=== PATIENT | male | born 1930 | race Caucasian/White ===

== ENCOUNTER 2016-10-25 01:45 | Inpatient (IN) | payer MEDICARE, OTHER ==
[~2016-10-25] VITALS: Ht 177.8 cm; Wt 76.9 kg
[2016-10-25] VITALS (9 sets, daily range): BP systolic 108–182; BP diastolic 55–99
[~2016-10-25 01:45] MED LIST: /TAMS4CA; /WARF25TA; /WARF5TA; ACET65TA; ACTO30TA; ATOR40TA PO; COMB0.2S OU; CORE12.5; CORE6.25 PO; COUM2TAB10 PO; FENOFIBRATE; FINA5TAB2 PO; GLIP5TAB2; GLIP5TAB8 PO; HYDR-3713 PO; HYDR25TA6; LEVO50TA2; LEVO75TA4 PO; OMEGA 3; PROS5TAB; TRUS1SOL OU; TRUSOPT; VICO5TAB; VITA500055 PO; VITAMIN D50000 UNT; WARF4TAB52 PO
[2016-10-25 02:55] LABS: BASO % 0.2 % (0.0-1.0); LARGE UNSTAINED CELL # 0.1 K/mm3 (0.0-0.4); LARGE UNSTAINED CELL % 0.7 % (0.0-4.0); LYMPH # 0.3 K/mm3 (1.5-4.5); LYMPH % 2.8 % (24.0-44.0); MEAN CORPUSCULAR HEMOGLOBIN 28.3 pg (27.0-33.0); MEAN CORPUSCULAR HGB CONC 30.9 g/dl (32.0-36.5); MEAN CORPUSCULAR VOLUME 91.5 fl (80.0-96.0); MONO # 0.4 K/mm3 (0.0-0.8); NEUTROPHILS # 8.4 K/mm3 (1.8-7.7); NEUTROPHILS % 92.2 % (36.0-66.0); PLATELET COUNT, AUTOMATED 130 k/mm3 (150-450); RED CELL DISTRIBUTION WIDTH 15.7 % (11.5-14.5); WHITE BLOOD COUNT 9.2 K/mm3 (4.0-10.0)
[2016-10-25 03:05] LABS: INR 1.46
[2016-10-25 03:08] LABS: ANION GAP 14 MEQ/L (8-16); BLOOD UREA NITROGEN 62 MG/DL (7-18); CALCIUM LEVEL 9.4 MG/DL (8.8-10.2); CARBON DIOXIDE LEVEL 23 MEQ/L (21-32); CHLORIDE LEVEL 103 MEQ/L (98-107); CREATININE FOR GFR 2.28 MG/DL (0.70-1.30); GLOMERULAR FILTRATION RATE 29.3 (>35); POTASSIUM SERUM 4.8 MEQ/L (3.5-5.1); SODIUM LEVEL 140 MEQ/L (136-145)
[2016-10-25 03:15] LABS: YEAST LIKE CELL URINE AUTO LARGE
[2016-10-25 03:17] LABS: YEAST LIKE CELL URINE AUTO MODERATE
[2016-10-25 03:39] LABS: GLUCOSE, FASTING 722 MG/DL (83-110)
--- NOTE | 2016-10-25 03:50 | REPUSA ---
HISTORY: Trauma COMPARISON: None TECHNIQUE: Multiple thin-section contiguous helically-acquired axially-displayed computed tomographic images of the lumbar spine are obtained from T12 through S1, with images reviewed at soft tissue and bone window. 2D Sagittal and coronal reformatted images are performed. FINDINGS: No acute fracture, suspicious lesion, or spondylolisthesis. There is mild dextroscoliosis with multil evel severe degenerative changes with endplate sclerosis, disc space narrowing with vacuum phenomena, anterior large bridging osteophytes, multilevel posterior small spurring and disc bulges. Spinal can al appears grossly patent. Multilevel severe facet arthropathy also noted. No paraspinal masses or collections. IVC filter. Bilateral renal atrophy with right nephrostomy tube. IMPRESSION: No acute fracture. Multilevel severe degenerative changes as described. If there are persistent sympt oms, MRI lumbar spine is recommended to assess for protruding disc pathology or more sensitive evalua tion for acute fracture. Thank you for your kind referral of this patient.
[2016-10-25 04:14] LABS: VENOUS BASE EXCESS -3.7 (-2.0-2.0); VENOUS O2 SATURATION 68.4 % (60.0-80.0); VENOUS PARTIAL PRESSURE O2 37.6 mmHg (30.0-50.0); VENOUS STANDARD HCO3 20.8 MEQ/L; VENOUS TOTAL CO2 23.7 MEQ/L (24.0-28.0)
--- NOTE | 2016-10-25 04:20 | REPUSA ---
CLINICAL HISTORY: Abdominal pain. TECHNIQUE: Multiple axial, sagittal and coronal CT images were obtained through the abdomen and pelvi s without administration of oral or IV contrast material. COMMENTS: Comparison is made to prior exam on 03/16/2016. Bilateral basilar atelectatic pulmonary changes. The liver is of uniform attenuation without mass or defect. There is no intra or extrahepatic biliary ductal dilatation. The spleen is normal. The gallbladder is distended containing a gallstone. The pa ncreas is of normal contour and attenuation characteristics. There is no evidence of adrenal mass. No change in bilateral chronic renal atrophy. No change in the 5.2 mm obstructing calculous of the le ft and at L4. No change in the mild bilateral hydroureteronephrosis. No change of bilateral nephrosto my tubes. There is no evidence for appendicitis. There is no bowel wall thickening. No evidence for small or la rge bowel obstruction. There is no evidence of abdominal ascites or lymphadenopathy. There is no evidence of intrinsic or extrinsic bladder mass. There is no pelvic ascites or lymphadeno martha. Images of the lung bases show no evidence of pleural or parenchymal mass. There are no pleural effusi ons. The bony structures are free of lytic or blastic lesions. Multilevel degenerative changes are seen in volving the thoracolumbar spine. Scattered calcifications are seen involving the aorta and major branches compatible with atherosclero sis. IMPRESSION: No acute traumatic pathology is seen. Cholelithiasis. Bilateral hydroureteronephrosis. Bilateral nephrostomy tubes. No change in left hepatic obstructing calculus. Thank you for your kind referral of this patient.
[2016-10-25] MEDS ORDERED: HumuLIN R (REGULAR) INSULIN (NovoLIN R) **100U/ML** PER UNIT As Ordered ONE (05:04)
[2016-10-25 05:21] LABS: ALBUMIN 2.3 GM/DL (3.2-5.2); ALBUMIN/GLOBULIN RATIO 0.41 (1.00-1.93); BILIRUBIN,DIRECT 0.1 MG/DL (0.0-0.2); BILIRUBIN,TOTAL 0.5 MG/DL (0.2-1.0); TOTAL PROTEIN 7.9 GM/DL (6.4-8.2)
[2016-10-25] MEDS ORDERED: D5W 1,000 ML IV SCH (05:37)
[2016-10-25] MEDS ORDERED: INSULIN HUMAN REGULAR 100 UNITS in NS 99 ML IV SCH (05:37)
[2016-10-25] MEDS ORDERED: VITA100066 PO (05:48)
[2016-10-25] MEDS ORDERED: PREG50CA PO (05:48)
--- NOTE | 2016-10-25 06:11 | EDDOCDS ---
Nurse's Notes [facility] Name: Ignacio Borden Age: 85 yrs Sex: Male : 1930 Arrival Date: 10/25/2016 Time: 01:45 Bed Admit Hold Private MD: Umer Khan Diagnosis: Diabetes mellitus due to underlying condition with hyperosmolarity;Acute kidney failure;Urinary tract infection, site not specified-bilateral pyelonephritis;Altered mental status, unspecified Presentation: 10/25 01:51 Presenting complaint: EMS states: pt found on floor of bathroom beside commode, fell on af2 buttocks. reports recent lower back pain radiating down into buttocks area. Presenting complaint: EMS states: states he has been feeling weak in the legs and stuck in his chair since Monday, decreased appetite- only ate a cookie today. Adult Sepsis Screening: The patient does not have new or worsening altered mentation. Patient's respiratory rate is less than 22. Systolic blood pressure is greater than 100. Patient has a qSOFA score of 0- Negative Sepsis Screen. Suicide/Homicide risk assessment- the patient denies having any suicidal and/or homicidal ideations and does not present with any other emotional, behavioral or mental health complaints. Status: Patient is not a health services coordinator or dependent. Transition of care: patient was not received from another setting of care. 01:51 Acuity: SHELBIE Level 3 af2 01:51 Method Of Arrival: Ambulance af2 Triage Assessment: 02:00 General: Appears in no apparent distress, Behavior is appropriate for age. Pain: af2 Location: buttocks Pain currently is 6 out of 10 on a pain scale. Respiratory: Airway is patent Respiratory effort is even, unlabored, Breath sounds are diminished bilaterally. : Patel in place to gravity drainage. Musculoskeletal: Reports pain in back and buttocks. Historical: - Allergies: menthol; - Home Meds: 1. atorvastatin 40 mg oral tab 1 tab once daily 2. Coreg 6.25 mg Oral tab 1 tab 2 times per day 3. Proscar 5 mg Oral tab 1 tab once daily 4. Coumadin 1 mg Oral tab 1mg on Monday/ Monday, 2mg T,mon, Th, Sat, Sun 5. Glucotrol 5 mg Oral tab 1 tab once daily 6. Trusopt 2 % Opht drop twice a day 7. Vitamin D Oral 5000 unit daily 8. Levothroid 75 mcg Oral tab 1 tab once daily 9. pregabalin 50 mg Oral cap 1 cap twice a day 10. combigan 0.2-0.5% 1 drop in eye twice daily - PMHx: CAD; Hypercholesterolemia; Hypertension; Kidney stones; PE; Diabetes - NIDDM: uncontrolled; - PSHx: YODIT nephrostomy; back surgery; Cataract Surgery- Bilateral; right knee; - Social history: Smoking status: Patient states was never smoker of tobacco. No barriers to communication noted, The patient speaks fluent Korean. - Family history: Not pertinent. - : The pt / caregiver states he / she is on anticoagulants: coumadin. Home medication list is obtained from the patient. - Exposure Risk Screening:: None identified. Screenin:03 Screening information is obtained from the patient. Fall risk: At risk due to age, The af2 following interventions are performed due to a positive Fall Risk Screen: Fall Risk is added to Special Handling on the patient Summary Screen. A Fall Risk Bracelet was applied to the patient. Side Rails are placed in the up position. A Call Corbett is given with instruction to call for help when getting out of bed. Assistance ADL's: Requires assistance with meal preparation, this assistance is provided by family members, bathing, assistance is provided by dressing, assistance is provided by toileting, assistance is provided by ambulation, assistance is provided by housework, assistance is provided by medication administration, assistance is provided by. Abuse/DV Screen: The patient / caregiver reports he/she is: not in a situation that causes fear, pain or injury. Nutritional screening: No deficits noted. Advance Directives: Further advance directive information is declined. home support is adequate. Assessment: 02:50 General: Appears in no apparent distress, Behavior is cooperative. Neurological: Level af2 of Consciousness is awake, alert, obeys commands. Cardiovascular: Rhythm is sinus tachycardia No ectopy. Chest pain is denied. Respiratory: Airway is patent Respiratory effort is even, unlabored, Respiratory pattern is regular, symmetrical, Breath sounds are diminished bilaterally. Derm: Skin is normal. 03:03 General: see triage note.. af2 03:40 General: Critical value of glucose of [address] Mitchell and assigned cp1 nurse.. 04:45 General: Appears in no apparent distress, Behavior is cooperative. General: af2 continues with pt at bedside at this time. . Neurological: Level of Consciousness is awake, alert, obeys commands. Cardiovascular: Rhythm is sinus tachycardia No ectopy. Respiratory: Airway is patent Respiratory effort is even, unlabored. Derm: Skin is normal. 05:43 General: Appears in no apparent distress, Behavior is cooperative, pt lying on af2 stretcher resting quietly with eyes closed. . Neurological: Level of Consciousness is awake, alert. Cardiovascular: Rhythm is sinus tachycardia No ectopy. Respiratory: Airway is patent Respiratory effort is even, unlabored. Derm: Skin is normal. Vital Signs: 01:53 BP 186 / 90 (auto/); af2 01:55 Pulse 118 MON; Pulse Ox 93% ; af2 01:57 BP 186 / 90; Pulse 120; Resp 18; Temp 99.7(O); Pulse Ox 93% on R/A; Weight 77.11 kg; cmb Height 5 ft. 10 in. (177.80 cm); Pain 10/10; 02:05 Pulse 120 MON; Resp 20 S; Pulse Ox 93% on R/A; af2 02:08 BP 193 / 94 (auto/); af2 02:23 BP 147 / 74 (auto/); af2 02:52 BP 161 / 95 (auto/); af2 02:53 Pulse 116 MON; Resp 20 S; Pulse Ox 92% on R/A; af2 03:08 BP 195 / 102 (auto/); af2 03:26 Pulse 112 MON; Resp 20; Pulse Ox 93% on R/A; af2 03:38 BP 200 / 100 (auto/); af2 03:38 Pulse 110 MON; Resp 20 S; af2 03:41 BP 197 / 99 (auto/); af2 03:41 Pulse 112 MON; Pulse Ox 92% ; af2 04:38 BP 134 / 94 (auto/); af2 04:38 Pulse 126 MON; af2 04:56 BP 167 / 82 (auto/); af2 04:57 Pulse 120 MON; Resp 20 S; Pulse Ox 94% on R/A; af2 05:47 BP 197 / 105 LA; Pulse 122; Resp 18 S; Temp 98.7(O); Pulse Ox 94% on R/A; af2 01:57 Body Mass Index 24.39 (77.11 kg, 177.80 cm) cmb Vitals: :57 Log In Time N/A - ambulance arrival. cmb ED Course: :46 Valeria McginnisRN is Primary Nurse. jl 01:46 Patient visited by Altagracia Varma, Board Saw Runner. jlm 01:46 Umer Khan MD is Private Physician. jlm 01:46 Patient moved to [facility] 01:54 Triage Initiated af2 01:57 Pt greeted and oriented to ED. Patient advised of names of staff involved in care, cmb location of call corbett, wait times and NPO status. Patient has correct armband on for positive identification. Placed in gown. Bed in low position. Call light in reach. Side rails up X2. surveillance system monitor on. Pulse ox on. NIBP on. 02:03 Patient visited by Valeria Mcginnis RN. af2 02:15 Uriel Mitchell DO is Attending Physician. mm11 02:15 Patient visited by Uriel Mitchell DO. mm11 02:32 Patient visited by Uriel Mitchell DO. mm11 02:32 Troponin Sent. af2 02:32 Prothrombin Time Profile\E\INR Sent. af2 02:32 Partial Thromboplastin Time Sent. af2 02:32 Cardiac Injury Profile Sent. af2 02:33 CBC with Diff Sent. af2 02:33 Basic Metabolic Profile Sent. af2 02:55 Patient visited by Gerhard Mcknight. jp4 02:55 EKG done. (by ED staff). Reviewed by Uriel Mitchell DO. jp4 03:03 URINALYSIS Sent. af2 03:03 URINALYSIS Sent. af2 03:03 URINE CULTURE Sent. af2 03:03 URINE CULTURE Sent. af2 03:42 Patient visited by Uriel Mitchell DO. mm11 04:01 CT Spine, Lumbar W/o Contrast Returned. EDMS 04:21 Patient visited by Uriel Mitchell DO. mm11 04:36 [facility] Payment Agreement was scanned into [email or web address] and attached to record. [facility] 04:36 CT ABD & PELVIS: No Contrast Returned. EDMS 04:46 Hamida Crooks [employer]. ys2 04:57 Hamida Crooks is Hospitalizing Provider. mm11 05:14 Patient moved to Admit Hold sls1 05:23 The patient / caregiver is instructed regarding the plan of care and ED course. af2 05:24 Inserted saline lock: 20 gauge in right forearm and blood collected. The patient af2 tolerated the procedure well. No procedures done that require assistance. 05:48 Patient visited by Valeria Mcginnis RN. af2 Administered Medications: 05:07 Drug: Insulin Regular Human (0.1 units/kg) 7 units [insulin regular human 100 unit/mL sls1 injection solution (0.07 mL)] {Co-Signature: cp1 (Veda Longoria CLINICAL MATERIAL HANDLER).} Route: IVP; Site: right antecubital; 05:07 Drug: NS 0.9% 1000 ml [sodium chloride 0.9 % intravenous solution] Route: IV; Rate: sls1 bolus; Site: right antecubital; Order Results: Lab Order: Basic Metabolic Profile; SPEC'M 10/25/16 02:01 Test: GLUCOSE, FASTING; Value: 722; Range: 83-110; Abnormal: Above upper panic limits; Units: MG/DL; Status: F Test: BLOOD UREA NITROGEN; Value: 62; Range: 7-18; Abnormal: Above high normal; Units: MG/DL; Status: F Test: CREATININE FOR GFR; Value: 2.28; Range: 0.70-1.30; Abnormal: Above high normal; Units: MG/DL; Status: F Test: GLOMERULAR FILTRATION RATE; Value: 29.3; Range: >35; Abnormal: Below low normal; Status: F Test: SODIUM LEVEL; Value: 140; Range: 136-145; Units: MEQ/L; Status: F Test: POTASSIUM SERUM; Value: 4.8; Range: 3.5-5.1; Units: MEQ/L; Status: F Test: CHLORIDE LEVEL; Value: 103; Range: 98-107; Units: MEQ/L; Status: F Test: CARBON DIOXIDE LEVEL; Value: 23; Range: 21-32; Units: MEQ/L; Status: F Test: ANION GAP; Value: 14; Range: 8-16; Units: MEQ/L; Status: F Test: CALCIUM LEVEL; Value: 9.4; Range: 8.8-10.2; Units: MG/DL; Status: F Test Note: ; Units are mL/min/1.73 m2 Chronic Kidney Disease Staging per NKF: Stage I & II GFR >=60 Normal to Mildly Decreased Stage III GFR 30-59 Moderately Decreased Stage IV GFR 15-29 Severely Decreased Stage V GFR <15 Very Little GFR Left ESRD GFR <15 on POLYSOMNOGRAPHY TECHNOLOGIST Lab Order: CBC with Diff; LEV 10/25/16 02:01 Test: WHITE BLOOD COUNT; Value: 9.2; Range: 4.0-10.0; Units: K/mm3; Status: F Test: RED BLOOD COUNT; Value: 4.71; Range: 4.30-6.10; Units: M/mm3; Status: F Test: HEMOGLOBIN; Value: 13.3; Range: 14.0-18.0; Abnormal: Below low normal; Units: g/dl; Status: F Test: HEMATOCRIT; Value: 43.0; Range: 42.0-52.0; Units: %; Status: F Test: MEAN CORPUSCULAR VOLUME; Value: 91.5; Range: 80.0-96.0; Units: fl; Status: F Test: MEAN CORPUSCULAR HEMOGLOBIN; Value: 28.3; Range: 27.0-33.0; Units: pg; Status: F Test: MEAN CORPUSCULAR HGB CONC; Value: 30.9; Range: 32.0-36.5; Abnormal: Below low normal; Units: g/dl; Status: F Test: RED CELL DISTRIBUTION WIDTH; Value: 15.7; Range: 11.5-14.5; Abnormal: Above high normal; Units: %; Status: F Test: PLATELET COUNT, AUTOMATED; Value: 130; Range: 150-450; Abnormal: Below low normal; Units: k/mm3; Status: F Test: NEUTROPHILS %; Value: 92.2; Range: 36.0-66.0; Abnormal: Above high normal; Units: %; Status: F Test: LYMPH %; Value: 2.8; Range: 24.0-44.0; Abnormal: Below low normal; Units: %; Status: F Test: MONO %; Value: 4.0; Range: 0.0-5.0; Units: %; Status: F Test: EOS %; Value: 0.0; Range: 0.0-3.0; Units: %; Status: F Test: BASO %; Value: 0.2; Range: 0.0-1.0; Units: %; Status: F Test: LARGE UNSTAINED CELL %; Value: 0.7; Range: 0.0-4.0; Units: %; Status: F Test: NEUTROPHILS #; Value: 8.4; Range: 1.8-7.7; Abnormal: Above high normal; Units: K/mm3; Status: F Test: LYMPH #; Value: 0.3; Range: 1.5-4.5; Abnormal: Below low normal; Units: K/mm3; Status: F Test: MONO #; Value: 0.4; Range: 0.0-0.8; Units: K/mm3; Status: F Test: EOS #; Value: 0.0; Range: 0.0-0.50; Units: K/mm3; Status: F Test: BASO #; Value: 0.0; Range: 0.0-0.2; Units: K/mm3; Status: F Test: LARGE UNSTAINED CELL #; Value: 0.1; Range: 0.0-0.4; Units: K/mm3; Status: F Lab Order: Cardiac Injury Profile; SPEC10/25/16 02:01 Test: CPK CREATINE PHOSPHOKINASE; Value: 140; Range: 39-308; Units: U/L; Status: F Test: CK-MB VALUE MASS; Value: 1.0; Range: 0.0-3.6; Units: NG/ML; Status: F Test: MB/CK RELATIVE INDEX; Value: 0.71; Range: < OR =4; Status: F Test Note: ; DIAGNOSIS CRITERIA MMB ng/ml Relative Index (RI) NON-AMI < or = 5 N/A ALDANA ZONE > 5 < or = 4 AMI > 5 > 4 Lab Order: Partial Thromboplastin Time; SPEC10/25/16 02:01 Test: PARTIAL THROMBOPLASTIN TIME; Value: 31.2; Range: 26.6-37.1; Units: SECONDS; Status: F Lab Order: Prothrombin Time Profile\E\INR; SPEC10/25/16 02:01 Test: PROTHROMBIN TIME; Value: 17.8; Range: 12.3-14.5; Abnormal: Above high normal; Units: SECONDS; Status: F Test: INR; Value: 1.46; Status: F Test Note: ; THERAPUTIC HUMAN INR VALUES INDICATIONS NORMAL RANGES PROPHYLAXIS/TREATMENT OF: VENOUS THROMBOSIS 2.0-3.0 PULMONARY EMBOLISM 2.0-3.0 PREVENTION OF SYSTEMIC EMBOLISM FROM: TISSUE HEART VALVES 2.0-3.0 ACUTE MYOCARDIAL INFARCTION 2.0-3.0 VALVULAR HEART DISEASE 2.0-3.0 ATRIAL FIBRILLATION 2.0-3.0 MECHANICAL VALVES(HIGH RISK) 2.5-3.5 RECURRENT MYOCARDIAL INFARCTION 2.5-3.5 Lab Order: Troponin; SPEC'M 10/25/16 02:01 Test: TROPONIN I; Value: < 0.02; Range: < 0.10; Units: NG/ML; Status: F Test Note: ; Troponin I Reference Interval for Certify LOCI: 99th Percentile= 0.00-0.045 ng/ml Risk Stratification: <= 0.10 ng/ml Decreased Risk for Adverse Clinical Events. 0.10-1.50 ng/ml Increased Risk for Adverse Clinical Events. Evaluation of additional criterion and/or repeat testing in 2-6 hours is suggested to rule out myocardial damage. >= 1.50 ng/ml Indicative of Myocardial Injury. Lab Order: URINALYSIS; SPEC'M 10/25/16 02:57 Test: APPEARANCE, URINE; Value: CLOUDY; Range: CLEAR; Abnormal: Above high normal; Status: F Test: COLOR, URINE; Value: YELLOW; Range: YELLOW; Status: F Test: PH,URINE; Value: 5.0; Range: 5.0-9.0; Units: UNITS; Status: F Test: SPECIFIC GRAVITY URINE AUTO; Value: 1.021; Range: 1.002-1.035; Status: F Test: PROTEIN, URINE AUTO; Value: 2+; Range: NEGATIVE; Abnormal: Above high normal; Units: mg/dL; Status: F Test: GLUCOSE, URINE (UA) AUTO; Value: 3+; Range: NEGATIVE; Abnormal: Above high normal; Units: mg/dL; Status: F Test: KETONE, URINE AUTO; Value: NEGATIVE; Range: NEGATIVE; Units: mg/dL; Status: F Test: UROBILINOGEN, URINE AUTO; Value: 0.2; Range: 0.0-2.0; Units: mg/dL; Status: F Test: BILIRUBIN, URINE AUTO; Value: NEGATIVE; Range: NEGATIVE; Status: F Test: NITRITE, URINE AUTO; Value: NEGATIVE; Range: NEGATIVE; Status: F Test: LEUKOCYTE ESTERASE, URINE AUTO; Value: 3+; Range: NEGATIVE; Abnormal: Above high normal; Status: F Test: BLOOD, URINE BLOOD; Value: 3+; Range: NEGATIVE; Abnormal: Above high normal; Status: F Test: WBC, URINE AUTO; Value: TNTC; Range: 0-3; Abnormal: Above high normal; Units: /HPF; Status: F Test: RBC, URINE AUTO; Value: TNTC; Range: 0-3; Abnormal: Above high normal; Units: /HPF; Status: F Test: BACTERIA, URINE AUTO; Value: NEGATIVE; Range: NEGATIVE; Status: F Test: YEAST LIKE CELL URINE AUTO; Value: LARGE; Range: NONE; Abnormal: Above high normal; Status: F Test: SQUAMOUS EPITHELIAL CELL UR AU; Value: 0; Range: 0-6; Units: /HPF; Status: F Test: MUCUS, URINE; Value: SMALL; Range: NEGATIVE; Status: F Test: HYALINE CAST, URINE AUTO; Value: 0; Range: 0-1; Units: /LPF; Status: F Lab Order: URINALYSIS; SPEC'M 10/25/16 02:57 Test: APPEARANCE, URINE; Value: TURBID; Range: CLEAR; Abnormal: Above high normal; Status: F Test: COLOR, URINE; Value: YELLOW; Range: YELLOW; Status: F Test: PH,URINE; Value: 5.0; Range: 5.0-9.0; Units: UNITS; Status: F Test: SPECIFIC GRAVITY URINE AUTO; Value: 1.018; Range: 1.002-1.035; Status: F Test: PROTEIN, URINE AUTO; Value: 2+; Range: NEGATIVE; Abnormal: Above high normal; Units: mg/dL; Status: F Test: GLUCOSE, URINE (UA) AUTO; Value: 3+; Range: NEGATIVE; Abnormal: Above high normal; Units: mg/dL; Status: F Test: KETONE, URINE AUTO; Value: NEGATIVE; Range: NEGATIVE; Units: mg/dL; Status: F Test: UROBILINOGEN, URINE AUTO; Value: 0.2; Range: 0.0-2.0; Units: mg/dL; Status: F Test: BILIRUBIN, URINE AUTO; Value: NEGATIVE; Range: NEGATIVE; Status: F Test: NITRITE, URINE AUTO; Value: NEGATIVE; Range: NEGATIVE; Status: F Test: LEUKOCYTE ESTERASE, URINE AUTO; Value: 3+; Range: NEGATIVE; Abnormal: Above high normal; Status: F Test: BLOOD, URINE BLOOD; Value: 3+; Range: NEGATIVE; Abnormal: Above high normal; Status: F Test: WBC, URINE AUTO; Value: TNTC; Range: 0-3; Abnormal: Above high normal; Units: /HPF; Status: F Test: RBC, URINE AUTO; Value: TNTC; Range: 0-3; Abnormal: Above high normal; Units: /HPF; Status: F Test: BACTERIA, URINE AUTO; Value: NEGATIVE; Range: NEGATIVE; Status: F Test: YEAST LIKE CELL URINE AUTO; Value: MODERATE; Range: NONE; Abnormal: Above high normal; Status: F Test: SQUAMOUS EPITHELIAL CELL UR AU; Value: 0; Range: 0-6; Units: /HPF; Status: F Test: MUCUS, URINE; Value: SMALL; Range: NEGATIVE; Status: F Test: HYALINE CAST, URINE AUTO; Value: 0; Range: 0-1; Units: /LPF; Status: F Lab Order: Venous Blood Gas (large pea green tube on ice); SPEC'M 10/25/16 03:53 Test: VENOUS PH; Value: 7.323; Range: 7.330-7.430; Abnormal: Below low normal; Units: UNITS; Status: F Test: VENOUS PARTIAL PRESSURE CO2; Value: 44.0; Range: 38.0-50.0; Units: mmHg; Status: F Test: VENOUS PARTIAL PRESSURE O2; Value: 37.6; Range: 30.0-50.0; Units: mmHg; Status: F Test: VENOUS TOTAL CO2; Value: 23.7; Range: 24.0-28.0; Abnormal: Below low normal; Units: MEQ/L; Status: F Test: VENOUS HCO3; Value: 22.3; Range: 23.0-27.0; Abnormal: Below low normal; Units: MEQ/L; Status: F Test: VENOUS BASE EXCESS; Value: -3.7; Range: -2.0-2.0; Abnormal: Below low normal; Status: F Test: VENOUS STANDARD HCO3; Value: 20.8; Units: MEQ/L; Status: F Test: VENOUS O2 SATURATION; Value: 68.4; Range: 60.0-80.0; Units: %; Status: F Lab Order: Osmolality, Serum; SPEC'M 10/25/16 02:01 Test: OSMOLALITY SERUM; Value: 347; Range: 280-301; Abnormal: Above high normal; Units: MOSM/KG; Status: F Lab Order: Liver Profile; SPEC'M 10/25/16 03:53 Test: AST/SGOT; Value: 13; Range: 15-37; Abnormal: Below low normal; Units: U/L; Status: F Test: ALT/SGPT; Value: 16; Range: 12-78; Units: U/L; Status: F Test: ALKALINE PHOSPHATASE; Value: 133; Range: 45-117; Abnormal: Above high normal; Units: U/L; Status: F Test: BILIRUBIN,TOTAL; Value: 0.5; Range: 0.2-1.0; Units: MG/DL; Status: F Test: BILIRUBIN,DIRECT; Value: 0.1; Range: 0.0-0.2; Units: MG/DL; Status: F Test: TOTAL PROTEIN; Value: 7.9; Range: 6.4-8.2; Units: GM/DL; Status: F Test: ALBUMIN; Value: 2.3; Range: 3.2-5.2; Abnormal: Below low normal; Units: GM/DL; Status: F Test: ALBUMIN/GLOBULIN RATIO; Value: 0.41; Range: 1.00-1.93; Abnormal: Below low normal; Status: F Radiology Order: CT ABD & PELVIS: No Contrast Test: CT ABD & PELVIS: No Contrast REASON FOR EXAMINATION: nephrostomy tube placement; ; CLINICAL HISTORY: Abdominal pain.; TECHNIQUE: Multiple axial, sagittal and coronal CT images were obtained through the abdomen and pelvi; s without administration of oral or IV contrast material.; COMMENTS:; Comparison is made to prior exam on 03/16/2016.; Bilateral basilar atelectatic pulmonary changes.; The liver is of uniform attenuation without mass or defect. There is no intra or extrahepatic biliary; ductal dilatation. The spleen is normal. The gallbladder is distended containing a gallstone. The pa; ncreas is of normal contour and attenuation characteristics. There is no evidence of adrenal mass.; No change in bilateral chronic renal atrophy. No change in the 5.2 mm obstructing calculous of the le; ft and at L4. No change in the mild bilateral hydroureteronephrosis. No change of bilateral nephrosto; my tubes.; There is no evidence for appendicitis. There is no bowel wall thickening. No evidence for small or la; rge bowel obstruction. There is no evidence of abdominal ascites or lymphadenopathy.; There is no evidence of intrinsic or extrinsic bladder mass. There is no pelvic ascites or lymphadeno; martha.; Images of the lung bases show no evidence of pleural or parenchymal mass. There are no pleural effusi; ons.; The bony structures are free of lytic or blastic lesions. Multilevel degenerative changes are seen in; volving the thoracolumbar spine.; Scattered calcifications are seen involving the aorta and major branches compatible with atherosclero; sis.; IMPRESSION:; No acute traumatic pathology is seen.; Cholelithiasis.; Bilateral hydroureteronephrosis.; Bilateral nephrostomy tubes.; No change in left hepatic obstructing calculus.; Thank you for your kind referral of this patient.; ; Radiology Order: CT Spine, Lumbar W/o Contrast Test: CT Spine, Lumbar W/o Contrast REASON FOR EXAMINATION: Trauma; ; HISTORY: Trauma; COMPARISON: None; TECHNIQUE: Multiple thin-section contiguous helically-acquired axially-displayed computed tomographic; images of the lumbar spine are obtained from T12 through S1, with images reviewed at soft tissue and; bone window. 2D Sagittal and coronal reformatted images are performed.; FINDINGS:; No acute fracture, suspicious lesion, or spondylolisthesis. There is mild dextroscoliosis with multil; evel severe degenerative changes with endplate sclerosis, disc space narrowing with vacuum phenomena,; anterior large bridging osteophytes, multilevel posterior small spurring and disc bulges. Spinal can; al appears grossly patent. Multilevel severe facet arthropathy also noted.; No paraspinal masses or collections. IVC filter. Bilateral renal atrophy with right nephrostomy tube.; ; IMPRESSION:; No acute fracture. Multilevel severe degenerative changes as described. If there are persistent sympt; oms, MRI lumbar spine is recommended to assess for protruding disc pathology or more sensitive evalua; tion for acute fracture.; Thank you for your kind referral of this patient.; ; Outcome: 04:58 Decision to Hospitalize by Provider. mm11 05:23 Discharge Assessment: Patient awake, alert and oriented x 3. No cognitive and/or af2 functional deficits noted. Patient verbalized understanding of disposition instructions. patient administered narcotics - no. The following High Risk Discharge criteria are identified: None. Admitted to ICU accompanied by nurse, accompanied by tech, via stretcher, on monitor, with chart. Condition: stable. CT Study completed. Property :Personal belongings accompany Pt. 06:10 Patient left the ED. af2 Signatures: Dispatcher [employer] EDUriel Goff, DO mm11 Veda Longoria LPN LPN cp1 Shameka Wilson, RN RN sls1 Coni Wills cmGerhard Bettencourt jp4 Altagracia Varma, Board Saw Runner Unit Jen Bravo Amber, RN RN af2 Hamida Crooks ys2 Veda Longoria LPN cp1 [facility]
--- NOTE | 2016-10-25 06:11 | EDDOCDS ---
Physician Documentation [facility] Name: Ignacio Borden Age: 85 yrs Sex: Male : 1930 Arrival Date: 10/25/2016 Time: 01:45 Bed Admit Hold Private MD: Umer Khan Disposition: 10/25/16 04:58 Hospitalization ordered by Hamida Crooks for Inpatient Admission. Preliminary diagnosis are Diabetes mellitus due to underlying condition with hyperosmolarity, Acute kidney failure, Urinary tract infection, site not specified - bilateral pyelonephritis, Altered mental status, unspecified. - Bed requested for ICU. - Status is Inpatient Admission. af2 - Condition is Stable. - Problem is an acute exacerbation. - Symptoms have improved. Historical: - Allergies: menthol; - Home Meds: 1. atorvastatin 40 mg oral tab 1 tab once daily 2. Coreg 6.25 mg Oral tab 1 tab 2 times per day 3. Proscar 5 mg Oral tab 1 tab once daily 4. Coumadin 1 mg Oral tab 1mg on Monday/ Monday, 2mg T,mon, , Mon, Sun 5. Glucotrol 5 mg Oral tab 1 tab once daily 6. Trusopt 2 % Opht drop twice a day 7. Vitamin D Oral 5000 unit daily 8. Levothroid 75 mcg Oral tab 1 tab once daily 9. pregabalin 50 mg Oral cap 1 cap twice a day 10. combigan 0.2-0.5% 1 drop in eye twice daily - PMHx: CAD; Hypercholesterolemia; Hypertension; Kidney stones; PE; Diabetes - NIDDM: uncontrolled; - PSHx: YODIT nephrostomy; back surgery; Cataract Surgery- Bilateral; right knee; - Social history: Smoking status: Patient states was never smoker of tobacco. No barriers to communication noted, The patient speaks fluent Slovenian. - Family history: Not pertinent. - : The pt / caregiver states he / she is on anticoagulants: coumadin. Home medication list is obtained from the patient. - Exposure Risk Screening:: None identified. Vital Signs: 10/25 01:53 BP 186 / 90 (auto/); af2 01:55 Pulse 118 MON; Pulse Ox 93% ; af2 01:57 BP 186 / 90; Pulse 120; Resp 18; Temp 99.7(O); Pulse Ox 93% on R/A; Weight 77.11 kg / cmb 170 lbs; Height 5 ft. 10 in. (177.80 cm); Pain 10/10; 02:05 Pulse 120 MON; Resp 20 S; Pulse Ox 93% on R/A; af2 02:08 BP 193 / 94 (auto/); af2 02:23 BP 147 / 74 (auto/); af2 02:52 BP 161 / 95 (auto/); af2 02:53 Pulse 116 MON; Resp 20 S; Pulse Ox 92% on R/A; af2 03:08 BP 195 / 102 (auto/); af2 03:26 Pulse 112 MON; Resp 20; Pulse Ox 93% on R/A; af2 03:38 BP 200 / 100 (auto/); af2 03:38 Pulse 110 MON; Resp 20 S; af2 03:41 BP 197 / 99 (auto/); af2 03:41 Pulse 112 MON; Pulse Ox 92% ; af2 04:38 BP 134 / 94 (auto/); af2 04:38 Pulse 126 MON; af2 04:56 BP 167 / 82 (auto/); af2 04:57 Pulse 120 MON; Resp 20 S; Pulse Ox 94% on R/A; af2 05:47 BP 197 / 105 LA; Pulse 122; Resp 18 S; Temp 98.7(O); Pulse Ox 94% on R/A; af2 01:57 Body Mass Index 24.39 (77.11 kg, 177.80 cm) cmb MDM: 02:30 Grape Pruner/Pulse Ox/q 30 min VS ordered. mm11 02:30 IV Saline Lock ordered. mm11 02:30 Rhythm Strip to chart ordered. mm11 02:30 Undress patient appropriately for examination ordered. mm11 02:30 Misc Codifier Order ordered. mm11 02:31 Basic Metabolic Profile Ordered. EDMS 02:31 CBC with Diff Ordered. EDMS 02:31 Cardiac Injury Profile Ordered. EDMS 02:31 Partial Thromboplastin Time Ordered. EDMS 02:31 Prothrombin Time Profile\E\INR Ordered. EDMS 02:31 Troponin Ordered. EDMS 02:31 portable chest Ordered. EDMS 02:31 ECG WITH READING ER PHYS+CARDIAG ordered. EDMS 02:31 CT ABD & PELVIS: No Contrast Ordered. EDMS 02:31 CT Spine, Lumbar W/o Contrast Ordered. EDMS 02:46 Misc Codifier Order complete. jlm 02:47 URINALYSIS Ordered. EDMS 02:47 URINALYSIS Ordered. EDMS 02:47 URINE CULTURE Ordered. EDMS 02:48 URINE CULTURE Ordered. EDMS 03:25 CBC with Diff Reviewed. mm11 03:25 Prothrombin Time Profile\E\INR Reviewed. mm11 03:25 URINALYSIS Reviewed. mm11 03:25 URINALYSIS Reviewed. mm11 03:25 Partial Thromboplastin Time Reviewed. mm11 03:41 Venous Blood Gas (large pea green tube on ice) Ordered. EDMS 03:41 Osmolality, Serum Ordered. EDMS 03:51 Financial registration complete. slh 04:08 Basic Metabolic Profile Reviewed. mm11 04:08 Osmolality, Serum Reviewed. mm11 04:08 Cardiac Injury Profile Reviewed. mm11 04:08 Troponin Reviewed. mm11 04:08 CT Spine, Lumbar W/o Contrast Reviewed. mm11 04:19 Venous Blood Gas (large pea green tube on ice) Reviewed. mm11 04:19 Liver Profile Ordered. EDMS 04:36 [facility] Payment Agreement was scanned into [employer] and attached to record. sl 04:38 BED REQUEST+ADM ordered. EDMS 04:38 CT ABD & PELVIS: No Contrast Reviewed. mm11 04:41 Insulin Regular Human (0.1 units/kg) 7 units IVP once ordered. mm11 04:41 NS 0.9% 1000 ml IV at bolus once ordered. mm11 04:53 Admission / Observation Status ordered. EDMS 05:01 NPO DIET ordered. EDMS 05:41 MRSA SCREEN Ordered. EDMS 05:45 RENAL PROFILE Ordered. EDMS 05:45 RENAL PROFILE Ordered. EDMS 05:45 RENAL PROFILE Ordered. EDMS 05:45 RENAL PROFILE Ordered. EDMS 05:46 RENAL PROFILE Ordered. EDMS 05:47 TROPONIN Ordered. EDMS 05:47 TROPONIN Ordered. EDMS 05:58 BLOOD CULTURES Ordered. EDMS 05:58 BLOOD CULTURES Ordered. EDMS Administered Medications: 05:07 Drug: Insulin Regular Human (0.1 units/kg) 7 units [insulin regular human 100 unit/mL sls1 injection solution (0.07 mL)] {Co-Signature: cp1 (Veda Longoria [employer]OD[employer]CHANT).} Route: IVP; Site: right antecubital; 05:07 Drug: NS 0.9% 1000 ml [sodium chloride 0.9 % intravenous solution] Route: IV; Rate: sls1 bolus; Site: right antecubital; Signatures: Dispatcher [employer] AMELIA FABIAN, FRANSISCO Fuller RN Uriel Leon, DO mm11 Altagracia Varma, Director Gift Unit Jen Bravo Amber, RN RN af2 Shameka Wilson RN sls1 Veda Longoria LPN cp1 The chart was reviewed and I authenticate all verbal orders and agree with the evaluation and treatment provided.Attachments: 04:36 [facility] Payment Agreement [facility] MTD[facility]
[2016-10-25 07:03] LABS: ALBUMIN 2.6 GM/DL (3.2-5.2); CALCIUM LEVEL 8.9 MG/DL (8.8-10.2); CREATININE FOR GFR 2.26 MG/DL (0.70-1.30); GLOMERULAR FILTRATION RATE 29.6 (>35); POTASSIUM SERUM 4.1 MEQ/L (3.5-5.1)
[2016-10-25] MEDS ORDERED: CARVedilol 6.25 MG TAB PO ONE (07:15)
[2016-10-25] MEDS: LEVOTHYROXINE 0.075 MG TAB (75 MCG) PO SCH (07:19)
[2016-10-25] MEDS: KCL 20MEQ in NS 1000ML 1,000 ML IV SCH ×2 (07:20→17:29)
--- NOTE | 2016-10-25 07:28 | HPE ---
DATE OF ADMISSION: 10/25/2016 PRIMARY CARE PROVIDER: Umer Khan MD CHIEF COMPLAINT: Weakness, high sugars. HISTORY OF PRESENT ILLNESS: Mr. Borden is a pleasant 85-year-old male with past medical history of type 2 diabetes, deep vein thrombosis (DVT) and pulmonary embolism, who [facility] with a complaint of a fall and weakness at home. States that the patient at baseline has chronic back pain and muscle spasm and when he has severe muscle spasm it leaves him able to sit in the chair for hours to days. He had a similar episode of severe back pain and muscle spasm approximately 3-4 days ago. At that time, he again sat in his chair for prolonged hours and has only tried to walk with a walker last night to go and have a bowel movement, but as he attempted to sit down he eventually slouched down on the bathroom floor because of significant weakness to his legs. There was no injury to his back, head or the rest of his body. He admits that in the last 3-4 days he has not had a good appetite and has stopped taking most of his medications, including his Glucotrol and Coumadin. Also noticed that he has had more coughing spells that are worse in the morning with yellow production. Also endorsed coughing spells at times when he eats or when swallowing pills. Associated with dizziness, unsteady on his feet but no syncopal episodes. No fevers, night sweats, shortness of breath, palpitations, slurring of speech. Incidentally complained of one episode of chest discomfort located in the sternal region yesterday, episode lasting approximately seconds to minutes, it resolved on its own, and it occurred while he was sitting in his wheelchair. Associated with one brief episode of shortness of breath, which resolved on its own. There was no radiation to the chest pain. In the emergency department, glucose found to be elevated at 722. He was started on IV fluids and insulin. 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 Hypertension. Type 2 diabetes with nephropathy. Gastroesophageal reflux disease (GERD). Polycythemia. Hyperlipidemia. Parkinson's disease. Lumbar spinal stenosis. Adenomatous polyp. Benign prostatic hypertrophy (BPH). Vitamin D deficiency. Hypothyroidism. Chronic kidney disease stage 3, chronic, creatinine is 1.9. Chronic anxiety. 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 PAST SURGICAL HISTORY: IVC filter 1991. Laminectomy. Bilateral hydronephrosis status post nephrostomy tubes. Colonoscopy. Ureteral stent placement. FAMILY HISTORY: Father from cerebrovascular accident (CVA) and diabetic complications. Mother from Alzheimer's disease. Son with hypothyroidism. SOCIAL HISTORY: Patient is an ex-smoker of many years. He used to smoke 20 years. No alcohol or drug use. No recent travel. Currently lives at home with his . He used to work for the [employer]. ALLERGIES: 1. ACTOS - edema. 2. BACTRIM - rash. 3. LOPID - gastrointestinal (GI) side effects. 4. MENTHOL - hives. 5. ULTRAM - GI effects. 6. ZETIA - GI effects. 7. ZOCOR - myalgias. 8. METFORMIN - GI effects. HOME MEDICATIONS: - [place] one tablet every 6 hours as needed, 5/325 - Lipitor 40 mg by mouth daily - Coreg 6.25 mg by mouth twice a day - vitamin D 1000 units by mouth daily - Combigan one drop both eyes (OU) twice a day - dorzolamide one drop both eyes (OU) twice a day - finasteride 5 mg by mouth daily - glipizide 5 mg by mouth daily - Synthroid 75 mcg by mouth daily - Lyrica 50 mg by mouth twice a day - Coumadin 2 mg twice a week, Monday and Monday, and 1 mg for the rest of the week. He has not been taking these medications because of his poor appetite. REVIEW OF SYSTEMS: CONSTITUTIONAL: Weight loss but unknown. thinks he has lost some weight in the last 3-4 days because of poor appetite, but unknown amount. HEENT: Positive for dizziness, lightheadedness, difficulty with swallowing. At times coughs with food. No blurry vision, double vision. CARDIOVASCULAR: Positive for chest pain as mentioned above. He has been sleeping upright, but only because of back pain, not because of shortness of breath. PULMONARY: No shortness of breath. Positive for productive cough as above. No hemoptysis. GASTROINTESTINAL: No nausea, vomiting, diarrhea, constipation, hematemesis, hematochezia or melena. GENITOURINARY: Positive for hydronephrosis status post nephrostomy tubes as above. MUSCULOSKELETAL: Positive for bilateral leg pain, chronic. NEUROLOGICAL: No paralysis, paresthesia, headaches. ENDOCRINE: Positive for thyroid and diabetes. LYMPHATICS: No lumps, bumps, or swelling anywhere in neck, axilla, or groin. HEMATOLOGY: No abnormal bleeding or bruising. PHYSICAL EXAMINATION: Blood pressure 186/90, heart rate 120, respiratory rate 18, pulse oximetry 93% on room air, temperature 99.7, BMI 24.3. GENERAL: Patient was sitting upright in bed, comfortable. No acute distress. He is alert, awake, oriented times three, pleasant and cooperative. at bedside. HEENT: Normocephalic, atraumatic. Very dry oral mucosa. Neck supple, no jugular venous distention (JVD). Extraocular movement intact. Pupils equal and reactive to light. CHEST: Symmetric chest rise, no accessory muscle use. Breath sounds with occasional crackles in the lung bases. HEART: Mildly tachycardic, S1 and S2 present. Could not appreciate any murmurs or rubs. ABDOMEN: Soft, nontender, nondistended, protuberant. No guarding, no rebound. EXTREMITY: No pedal edema. Pedal pulses present bilaterally. NEUROLOGIC: Strength 4/5 in all extremities. Sensory intact. Negative Babinski. Intact finger to nose. No focal deficits appreciated. Did not assess gait. LABORATORY DATA: WBC 9.2, hemoglobin 13.3, hematocrit 43, platelets 130, sodium 140, potassium 4.8, chloride 103, carbon dioxide 23, BUN 62, creatinine 2.28, glucose 722, osmolality 347, calcium 9.4, AST 13, ALT 16, alkaline phosphatase 133. Troponin first set is negative. Coags PT 17.8, INR 1.46. VBG pH 7.32, pCO2 44, pO2 37.6. CT of the abdomen and pelvis showed no acute traumatic pathology. Cholelithiasis. Bilateral hydroureteronephrosis with tubes. Lumbar spine showed no acute fracture. Multilevel degenerative changes. C Chest x-ray AP poor inspiratory effort. Cardiomegaly. Clear costophrenic angle on the right, difficult to appreciate angle on the left. No obvious infiltrates appreciated. EKG showed sinus tach, heart rate of 116. Left axis deviation. IMPRESSION/PLAN: Mr. Borden is a pleasant 85-year-old male who presented with weakness, found to have elevated glucose. 1. Hyperosmolar hyperglycemic state. This is likely secondary to his noncompliance with medication due to poor appetite. So far cardiac workup for possible etiology of his hyperosmolar state is negative, however will continue trend Troponins. Check a urine culture. He does have recurrent urinary tract infections in the past. The patient will be started on an insulin drip and IV fluid hydration. Nothing by mouth status due to reported episodes of coughing with food. 2. Acute kidney injury likely secondary to #1. Continue IV hydration as mentioned above. 3. History of PE/DVT, status post IVC filter. Continue Coumadin but his INR is subtherapeutic. For now will continue Coumadin 2 mg daily. Dose can be adjusted based on the daily labs. 4. Hyperlipidemia. Continue Lipitor 40 mg daily. 5. Hypertension. Continue Coreg 6.25 mg twice a day. 6. Benign prostatic hypertrophy (BPH). Continue 5 mg of finasteride. 7. Hypothyroidism. Continue home dose of levothyroxine. 8. Deep vein thrombosis (DVT) prophylaxis. Sequential compression devices (SCD), thromboembolic deterrent stockings (TEDS) and Coumadin. My preceptor for this patient encounter was Dr. Hamida Crooks. The preceptor was physically present in the building during the encounter and was fully available. As needed, all aspects of the patient interview, examination, medical decision making process, and medical care plan development were reviewed and approved by the preceptor. The preceptor is aware and concurs with the plan as stated in the body of this note and will attest to such by his/her cosignature. CARLOS
--- NOTE | 2016-10-25 07:58 | REP ---
Clinical: Chest pain and weakness . Comparison: 09/29/2014 . Findings: The mediastinum and cardiac silhouette are stable and within normal limits for portable technique. The lung gonzales are clear without acute consolidation, effusion, or pneumothorax. Skeletal structures are intact. Impression: No focal consolidation or acute cardiopulmonary process. Signed by Kit Cherry MD 10/25/2016 07:51 A
[2016-10-25 08:12] LABS: ALBUMIN 2.3 GM/DL (3.2-5.2); CREATININE FOR GFR 2.09 MG/DL (0.70-1.30); GLOMERULAR FILTRATION RATE 32.4 (>35); PHOSPHORUS LEVEL 1.5 MG/DL (2.5-4.9); POTASSIUM SERUM 4.4 MEQ/L (3.5-5.1)
[2016-10-25] MEDS: PREGABALIN 50 MG CAP (LYRICA) PO SCH ×2 (08:27→20:13)
[2016-10-25] MEDS: ATORVASTATIN 20 MG TAB PO SCH (08:28)
[2016-10-25] MEDS: FINASTERIDE 5 MG TAB PO SCH (08:28)
[2016-10-25] MEDS: VITAMIN D 1,000 INTERNATIONAL UNITS TABLET PO SCH (08:28)
[2016-10-25] MEDS: DORZOLAMIDE 2% OPHTH SOLN 10 ML BTL OU SCH ×2 (08:28→20:13)
[2016-10-25] MEDS ORDERED: CARVedilol 6.25 MG TAB PO SCH (09:00)
--- NOTE | 2016-10-25 09:21 | IPNPDOC ---
Assessment/Plan Date Seen The patient was seen on 10/25/16. 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 Normally managed by Glucotrol at home, but was not taking this fro several days at home. JFW: change insulin drip to ICU protocol, except no D5 for BS<200 (2) Acute ass-[id number] elevation myocardial infarction Status: Acute Problem Text: JFW: troponin bumper to 0.45. Already on statin and bblocker, on warfarin. Will consult ronit TURNER d/w Dr Burris (3) Acute kidney injury Status: Acute Problem Text: Continue IVF Has CKD - Baseline creatinine around 1.9 (4) History of pulmonary embolism Status: Chronic Response to Treatment: Stable Problem Text: On Chronic Coumadin Subtherapeutic on admission, but was not taking meds. Usual HD 2 mg daily restarted (5) BPH (benign prostatic hyperplasia) Status: Chronic Response to Treatment: Stable Problem Text: On Proscar (6) Hypothyroid Status: Chronic Response to Treatment: Stable Problem Specific Plan: Monitor Clinically Problem Text: Levothyroxine (7) Parkinson disease Status: Chronic Response to Treatment: Stable (8) Sacral decubitus ulcer, stage III Status: Chronic Problem Text: Get wound consult Plan / VTE VTE Prophylaxis Ordered?: Yes (Coumadin) Plan Therapy: PT, OT Disposition Get Wound Consult Subjective Review of Systems CC/HPI The patient is a 85-year-old male admitted with a reason for visit of Acute Kidney Injury, Uncontrolled Type 2 Dm. Events since last encounter No complaints Constitutional: Denies: Chills, Fever Pulmonary: Denies: Cough, Dyspnea Cardiovascular: Denies: Chest Pain, Orthopnea, Palpitations Gastrointestinal: Denies: Abdominal Pain, Constipation, Diarrhea, Nausea, Vomiting Musculoskeletal: Reports: Other Symptoms (back pain controlled currently) Objective Physical Examination General Exam: Positive: No Acute Distress, Other (drowsy but arousable. A little confused) Chest Exam: Positive: Normal air movement, Negative: Clear to auscultation Heart Exam: Positive: Rate Normal, Negative: Murmurs Abdomen Exam: Positive: Soft, Negative: Tenderness Male Exam: Negative: Edema Vital Signs/I&O Vital Signs Date Time Temp Pulse Resp B/P Pulse Ox O2 Delivery O2 Flow Rate FiO2 10/25/16 07:21 112 182/84 10/25/16 06:30 99.0 18 96 Room Air Laboratory Data Labs 24H Laboratory Tests 2 10/25/16 02:01: Activated Partial Thromboplast Time 31.2, Anion Gap 14, White Blood Count 9.2, Red Blood Count 4.71, Hemoglobin 13.3L, Hematocrit 43.0, Mean Corpuscular Volume 91.5, Mean Corpuscular Hemoglobin 28.3, Mean Corpuscular Hemoglobin Concent 30.9L, Red Cell Distribution Width 15.7H, Platelet Count 130L, Neutrophils (%) (Auto) 92.2H, Lymphocytes (%) (Auto) 2.8L, Monocytes (%) (Auto) 4.0, Eosinophils (%) (Auto) 0.0, Basophils (%) (Auto) 0.2, Neutrophils # (Auto) 8.4H, Lymphocytes # (Auto) 0.3L, Monocytes # (Auto) 0.4, Eosinophils # (Auto) 0.0, Basophils # (Auto) 0.0, Blood Urea Nitrogen 62H, Creatinine 2.28H, Sodium Level 140, Potassium Level 4.8, Chloride Level 103, Carbon Dioxide Level 23, Calcium Level 9.4, Total Creatine Kinase 140, Creatine Kinase MB 1.0, Creatine Kinase MB Relative Index 0.71, Glomerular Filtration Rate 29.3L, Large Unclassified Cells # 0.1, Large Unclassified Cells % 0.7, Osmolality 347H, Prothromb Time International Ratio 1.46, Prothrombin Time 17.8H, Troponin I < 0.02 10/25/16 02:57: Urine Amorphous Sediment , Urine Appearance TURBIDH, Urine Color YELLOW, Urine pH 5.0, Urine Specific [place] 1.018, Urine Protein 2+H, Urine Glucose (UA) 3+H , Urine Ketones NEGATIVE, Urine Urobilinogen 0.2, Urine Bilirubin NEGATIVE, Urine Leukocyte Esterase 3+H, Urine Bacteria (Auto) NEGATIVE, Urine Blood 3+H, Urine Calcium Carbonate Cryst(Auto) , Urine Calcium Oxalate Cryst (Auto) , Urine Calcium Phosphate Tessa (Auto) , Urine Cellular Casts , Urine Cystine Crystals , Urine Granular Casts (Auto) , Urine Hyaline Casts (Auto) 0, Urine Leucine Crystals , Urine Mucus (Auto) SMALL, Urine Nitrite NEGATIVE, Urine Oval Fat Bodies (Auto) , Urine RBC (Auto) TNTCH, Urine Renal Epithelial Cells , Urine Sperm (Auto) , Urine Squamous Epithelial Cells 0, Urine Transitional Epithelial Cells , Urine Trichomonas (Auto) , Urine Triple Phosphate Cryst (Auto ) , Urine Tyrosine Crystals , Urine Uric Acid Crystals (Auto) , Urine WBC (Auto ) TNTCH, Urine Waxy Casts (Auto) , Urine Yeast-Like Cells (Auto) MODERATEH 10/25/16 03:53: Aspartate Amino Transf (AST/SGOT) 13L, Alanine Aminotransferase (ALT/SGPT) 16, Alkaline Phosphatase 133H, Total Bilirubin 0.5, Direct Bilirubin 0.1, Albumin 2.3L, Albumin/Globulin Ratio 0.41L, Blood Gas Bicarbonate Standard 20.8, Total Protein 7.9, Venous Blood Base Excess -3.7L, Venous Blood pH 7.323L, Venous Blood Partial Pressure CO2 44.0, Venous Blood Partial Pressure O2 37.6, Venous Blood Total Carbon Dioxide 23.7L, Venous Blood HCO3 22.3L, Venous Blood Oxygen Saturation 68.4 10/25/16 06:17: Bedside Glucose (Misc Panel) 541*H 10/25/16 06:30: Albumin 2.6L, Blood Urea Nitrogen 61H, Creatinine 2.26H, Sodium Level 142, Potassium Level 4.1, Chloride Level 107, Carbon Dioxide Level 22, Anion Gap 13, Bedside Glucose Confirm (Misc) 513*H, Calcium Level 8.9, Glomerular Filtration Rate 29.6L, Phosphorus Level 2.0L 10/25/16 07:43: Albumin 2.3L, Blood Urea Nitrogen 63H, Creatinine 2.09H, Sodium Level 145, Potassium Level 4.4, Chloride Level 109H, Carbon Dioxide Level 23, Anion Gap 13 , Calcium Level 9.0, Glomerular Filtration Rate 32.4L, Phosphorus Level 1.5#L 10/25/16 08:21: Bedside Glucose (Misc Panel) 499H CBC/BMP Laboratory Tests 10/25/16 02:01 Calcium Level 9.4, Total Creatine Kinase 140, Red Blood Count 4.71, Mean Corpuscular Volume 91.5, Mean Corpuscular Hemoglobin 28.3, Mean Corpuscular Hemoglobin Concent 30.9 L, Red Cell Distribution Width 15.7 H, Neutrophils (%) ( Auto) 92.2 H, Lymphocytes (%) (Auto) 2.8 L, Monocytes (%) (Auto) 4.0, Eosinophils (%) (Auto) 0.0, Basophils (%) (Auto) 0.2, Neutrophils # (Auto) 8.4 H , Lymphocytes # (Auto) 0.3 L, Monocytes # (Auto) 0.4, Eosinophils # (Auto) 0.0, Basophils # (Auto) 0.0 10/25/16 06:30 Anion Gap 13 10/25/16 07:43 Anion Gap 13 FSBS Laboratory Tests Test 10/25/16 06:17 10/25/16 08:21 Range/Units Bedside Glucose (Misc Panel) 541 499 83-110 MG/DL Microbiology Microbiology 10/25/16 Blood Culture, Received Pending 10/25/16 Blood Culture, Received Pending 10/25/16 MRSA Screen, Received Pending 10/25/16 Urine Culture, Received Pending 10/25/16 Urine Culture, Received Pending MERRY KHAN PA-C Oct 25, 2016 09:21 Umer Khan MD Oct 25, 2016 14:11
[2016-10-25] MEDS: INSULIN IV RATE CHANGE DOCUMENTATION ML/HR XX SCH ×5 (10:04→20:00)
[2016-10-25 10:22] LABS: ALBUMIN 2.3 GM/DL (3.2-5.2); CREATININE FOR GFR 2.11 MG/DL (0.70-1.30); PHOSPHORUS LEVEL 1.2 MG/DL (2.5-4.9); POTASSIUM SERUM 3.9 MEQ/L (3.5-5.1)
[2016-10-25] MEDS: NORCO, ANEXSIA 5/325MG TABLET (HYDROcodone/ACETAMINOPHEN) PO PRN (11:37)
[2016-10-25 12:42] LABS: ALBUMIN 2.1 GM/DL (3.2-5.2); CALCIUM LEVEL 8.5 MG/DL (8.8-10.2); GLOMERULAR FILTRATION RATE 34.1 (>35); PHOSPHORUS LEVEL 1.3 MG/DL (2.5-4.9); POTASSIUM SERUM 4.2 MEQ/L (3.5-5.1)
[2016-10-25] MEDS: INSULIN HUMAN REGULAR 100 UNITS in NS 99 ML IV SCH (14:00)
[2016-10-25 14:27] LABS: ALBUMIN 2.1 GM/DL (3.2-5.2); CALCIUM LEVEL 8.8 MG/DL (8.8-10.2); CREATININE FOR GFR 1.92 MG/DL (0.70-1.30); GLOMERULAR FILTRATION RATE 35.7 (>35); PHOSPHORUS LEVEL 1.3 MG/DL (2.5-4.9); POTASSIUM SERUM 4.3 MEQ/L (3.5-5.1)
[2016-10-25] MEDS ORDERED: ASPIRIN 81 MG CHEW TABLET PO ONE (14:45)
[2016-10-25] MEDS ORDERED: WARFARIN SOD 2 MG TAB PO SCH (17:00)
--- NOTE | 2016-10-25 17:46 | CR.PDOC ---
[facility] Cardiology Consultation Date of Consultation 10/25/16 Cadiology Consultation REFERRING PHYSICIAN: Umer Khan M.D. REASON FOR REFERRAL: Acute coronary syndrome, elevated troponin I HISTORY OF PRESENT ILLNESS: 85-year-old man with type 2 diabetes, diabetic nephropathy, chronic kidney disease stage III, systemic hypertension, antithrombin III deficiency, prior DVT, Jignesh filter, on chronic warfarin therapy with no previously known heart disease. Patient was hospitalized earlier today with complaints of weakness and falls and was noted to be severely hyperglycemic and acute kidney injury. Since admission he was noted to have an indeterminate range troponin I which was elevated from a normal value at the time of admission. He is quite sedentary. He denies any chest, neck, jaw , or upper extremity pain, pressure, tightness, squeezing, heaviness or burning with or without exertion. Denies any exertional dyspnea. No orthopnea or PND. No leg or ankle swelling. No palpitations. No presyncope or syncope. No embolic events. No intermittent claudication. 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 Mother from Alzheimer's dementia. Son with hypothyroidism. SOCIAL HISTORY: Prior smoking history. No alcohol or illicit drugs. Lives with his . Retired from the [employer]. REVIEW OF SYSTEMS: Poor appetite 3-4 days. Dizziness/lightheadedness. Difficulty swallowing. Productive cough 3-4 days. Hydronephrosis status post nephrostomy tubes. Chronic bilateral leg pain. Hypothyroidism and type 2 diabetes. No panic attacks or depression. All other 10 point review of systems negative. GENERAL APPEARANCE: - Normal body weight. Not in any respiratory or psychologic distress. No gross head, facial, or skeletal deformities. EYES: No conjunctival pallor, scleral icterus or xanthelasma. ENT/Mouth: - Some missing teeth. NECK: Jugular Venous Pulsations: 3 cm Trachea midline. No palpable thyroid. EXTREMITIES: No clubbing, nailbed cyanosis, or splinter hemorrhages. SKIN: No skin lesions. No skin pallor or icterus. NEUROLOGIC/PSYCHOLOGIC: Oriented to person, place, and time. Mood and affect normal. Speech normal. MUSCULOSKELETAL: Curvature of the spine normal. Gross motor strength and tone normal. No muscle atrophy, fasciculations, or tremors. - Gait not appropriate to test at this time. THORAX: Breathing appears unlabored with normal expansion. No dullness to percussion. Normal breath sounds. No crackles, wheezes, or prolonged expiration. HEART: No anterior chest scars or devices. No palpable apex beat. No left parasternal lifts, heaves, or thrills. S1 normal. S2 normal. No S3 or S4. No systolic clicks, opening snap, pericardial knock, or pericardial friction rubs No murmurs. ARTERIAL PULSES: Carotids normal in volume and contour and without bruits. No palpable abdominal aorta. Femoral pulses 2+/2 Pedal pulses 2+/2 LOWER EXTREMITY EDEMA: - No edema. ABDOMEN: Abdomen soft nontender with normal bowel sounds. No abdominal bruits. No hepatomegaly, splenomegaly, or abdominal masses. - Liver span (right midclavicular line): 12 cm - Stool for occult blood not indicated. Presence of bilateral nephrostomy tubes with urine drainage bags. ALLERGIES: Please see below. HOME MEDICATIONS: Please see below. CURRENT MEDICATIONS: Please see below. Electrocardiogram: ECG ordered. No current ECG is available from this hospitalization available yet. LABORATORY DATA: Please see below. IMAGING: Single view chest x-ray 10/25/2016 reported no acute focal consolidation or acute cardiopulmonary process. Mediastinum and cardiac silhouette within normal limits for portable technique. Lung gonzales clear and without acute consolidation or effusion. ASSESSMENT/PLAN: 1. Indeterminate level troponin I is a patient with multiple ASCVD risk factors (type 2 diabetes, prior smoking history, systemic hypertension, CKD, hyperlipidemia, male gender) in the setting of severe hyperglycemia and acute kidney injury. ECG has been ordered but pending. I suspect that this patient almost certainly has atherosclerotic coronary heart disease. Differentiation between primary acute coronary syndrome versus secondary acute coronary syndrome is difficult to determine. He is chronically maintained on warfarin because of prior DVT/embolism, antithrombin III deficiency, and Jignesh filter. Patient denies any chest pain/discomfort to suggest angina however given his long-standing history of poorly controlled diabetes he could very well have absence of anginal symptoms. Patient desires only medical therapy and does not wish to undergo cardiac catheterization/percutaneous coronary intervention or coronary artery bypass graft surgery. Continue troponin I monitoring. Cardiac injury panel was ordered. Continue warfarin. Aspirin 81 mg daily was added. Use of ACEI or ARB is currently contraindicated by acute kidney injury. Continue intensive statin therapy (atorvastatin 40 mg/d). Recommend switching from vasodilating beta sita carvedilol to a non- vasodilating beta sita so as to permit diastolic BP greater than 60 mmHg. 2. Systemic Hypertension. Recent BP readings in hospital indicate controlled systolic BP and a few diastolic BPs in the 50s. I would like to see diastolic BP greater than or equal to 60 mmHg because of CAD. To accomplish this I will like to switch him from vasodilating beta sita (carvedilol) to atenolol. No use of ACEI or ARB at present due to acute kidney injury. 3. Hyperlipidemia. No prior recent lipid profile is available for review. Patient is currently on intensive statin therapy (atorvastatin 40 mg/d). Recommend DASH diet. Thank you kindly for asking me to participate in the care of your patient. Vital Signs/I&O Vital Signs Date Time Temp Pulse Resp B/P Pulse Ox O2 Delivery O2 Flow Rate FiO2 10/25/16 16:00 99.0 103 20 108/63 95 Room Air Height (in): 70 Weight (kg): 78.3 BMI (kg): 24.8 Laboratory Data Labs 24H Laboratory Tests 2 10/25/16 02:01: Activated Partial Thromboplast Time 31.2, Anion Gap 14, White Blood Count 9.2, Red Blood Count 4.71, Hemoglobin 13.3L, Hematocrit 43.0, Mean Corpuscular Volume 91.5, Mean Corpuscular Hemoglobin 28.3, Mean Corpuscular Hemoglobin Concent 30.9L, Red Cell Distribution Width 15.7H, Platelet Count 130L, Neutrophils (%) (Auto) 92.2H, Lymphocytes (%) (Auto) 2.8L, Monocytes (%) (Auto) 4.0, Eosinophils (%) (Auto) 0.0, Basophils (%) (Auto) 0.2, Neutrophils # (Auto) 8.4H, Lymphocytes # (Auto) 0.3L, Monocytes # (Auto) 0.4, Eosinophils # (Auto) 0.0, Basophils # (Auto) 0.0, Blood Urea Nitrogen 62H, Creatinine 2.28H, Sodium Level 140, Potassium Level 4.8, Chloride Level 103, Carbon Dioxide Level 23, Calcium Level 9.4, Total Creatine Kinase 140, Creatine Kinase MB 1.0, Creatine Kinase MB Relative Index 0.71, Glomerular Filtration Rate 29.3L, Large Unclassified Cells # 0.1, Large Unclassified Cells % 0.7, Osmolality 347H, Prothromb Time International Ratio 1.46, Prothrombin Time 17.8H, Troponin I < 0.02 10/25/16 02:57: Urine Amorphous Sediment , Urine Appearance TURBIDH, Urine Color YELLOW, Urine pH 5.0, Urine Specific [place] 1.018, Urine Protein 2+H, Urine Glucose (UA) 3+H , Urine Ketones NEGATIVE, Urine Urobilinogen 0.2, Urine Bilirubin NEGATIVE, Urine Leukocyte Esterase 3+H, Urine Bacteria (Auto) NEGATIVE, Urine Blood 3+H, Urine Calcium Carbonate Cryst(Auto) , Urine Calcium Oxalate Cryst (Auto) , Urine Calcium Phosphate Tessa (Auto) , Urine Cellular Casts , Urine Cystine Crystals , Urine Granular Casts (Auto) , Urine Hyaline Casts (Auto) 0, Urine Leucine Crystals , Urine Mucus (Auto) SMALL, Urine Nitrite NEGATIVE, Urine Oval Fat Bodies (Auto) , Urine RBC (Auto) TNTCH, Urine Renal Epithelial Cells , Urine Sperm (Auto) , Urine Squamous Epithelial Cells 0, Urine Transitional Epithelial Cells , Urine Trichomonas (Auto) , Urine Triple Phosphate Cryst (Auto ) , Urine Tyrosine Crystals , Urine Uric Acid Crystals (Auto) , Urine WBC (Auto ) TNTCH, Urine Waxy Casts (Auto) , Urine Yeast-Like Cells (Auto) MODERATEH 10/25/16 03:53: Aspartate Amino Transf (AST/SGOT) 13L, Alanine Aminotransferase (ALT/SGPT) 16, Alkaline Phosphatase 133H, Total Bilirubin 0.5, Direct Bilirubin 0.1, Albumin 2.3L, Albumin/Globulin Ratio 0.41L, Blood Gas Bicarbonate Standard 20.8, Total Protein 7.9, Venous Blood Base Excess -3.7L, Venous Blood pH 7.323L, Venous Blood Partial Pressure CO2 44.0, Venous Blood Partial Pressure O2 37.6, Venous Blood Total Carbon Dioxide 23.7L, Venous Blood HCO3 22.3L, Venous Blood Oxygen Saturation 68.4 10/25/16 06:17: Bedside Glucose (Misc Panel) 541*H 10/25/16 06:30: Albumin 2.6L, Blood Urea Nitrogen 61H, Creatinine 2.26H, Sodium Level 142, Potassium Level 4.1, Chloride Level 107, Carbon Dioxide Level 22, Anion Gap 13, Bedside Glucose Confirm (Misc) 513*H, Calcium Level 8.9, Glomerular Filtration Rate 29.6L, Phosphorus Level 2.0L 10/25/16 07:43: Albumin 2.3L, Blood Urea Nitrogen 63H, Creatinine 2.09H, Sodium Level 145, Potassium Level 4.4, Chloride Level 109H, Carbon Dioxide Level 23, Anion Gap 13 , Calcium Level 9.0, Glomerular Filtration Rate 32.4L, Phosphorus Level 1.5#L 10/25/16 08:21: Bedside Glucose (Misc Panel) 499H 10/25/16 09:18: Bedside Glucose (Misc Panel) 469H 10/25/16 09:56: Albumin 2.3L, Blood Urea Nitrogen 61H, Creatinine 2.11H, Sodium Level 148H, Potassium Level 3.9, Chloride Level 112H, Carbon Dioxide Level 22, Anion Gap 14 , Calcium Level 9.0, Glomerular Filtration Rate 32.0L, Phosphorus Level 1.2L, Troponin I 0.45#H 10/25/16 10:02: Bedside Glucose (Misc Panel) 399H 10/25/16 11:10: Bedside Glucose (Misc Panel) 392H 10/25/16 11:33: Albumin 2.1L, Blood Urea Nitrogen 59H, Creatinine 2.00H, Sodium Level 146H, Potassium Level 4.2, Chloride Level 112H, Carbon Dioxide Level 23, Anion Gap 11 , Calcium Level 8.5L, Glomerular Filtration Rate 34.1L, Phosphorus Level 1.3L 10/25/16 12:00: Bedside Glucose (Misc Panel) 363H 10/25/16 13:08: Bedside Glucose (Misc Panel) 331H 10/25/16 13:33: Albumin 2.1L, Blood Urea Nitrogen 65H, Creatinine 1.92H, Sodium Level 148H, Potassium Level 4.3, Chloride Level 115H, Carbon Dioxide Level 24, Anion Gap 9, Calcium Level 8.8, Glomerular Filtration Rate 35.7, Phosphorus Level 1.3L 10/25/16 13:54: Bedside Glucose (Misc Panel) 322H 10/25/16 14:53: Bedside Glucose (Misc Panel) 249H 10/25/16 14:54: Creatine Kinase MB 1.4, Creatine Kinase MB Relative Index 0.86, Total Creatine Kinase 161 10/25/16 15:56: Bedside Glucose (Misc Panel) 205H CBC/BMP Laboratory Tests 10/25/16 02:01 Calcium Level 9.4, Total Creatine Kinase 140, Red Blood Count 4.71, Mean Corpuscular Volume 91.5, Mean Corpuscular Hemoglobin 28.3, Mean Corpuscular Hemoglobin Concent 30.9 L, Red Cell Distribution Width 15.7 H, Neutrophils (%) ( Auto) 92.2 H, Lymphocytes (%) (Auto) 2.8 L, Monocytes (%) (Auto) 4.0, Eosinophils (%) (Auto) 0.0, Basophils (%) (Auto) 0.2, Neutrophils # (Auto) 8.4 H , Lymphocytes # (Auto) 0.3 L, Monocytes # (Auto) 0.4, Eosinophils # (Auto) 0.0, Basophils # (Auto) 0.0 10/25/16 06:30 Anion Gap 13 10/25/16 07:43 Anion Gap 13 10/25/16 09:56 Anion Gap 14 10/25/16 11:33 Anion Gap 11 10/25/16 13:33 Anion Gap 9 FSBS Laboratory Tests Test 10/25/16 06:17 10/25/16 08:21 10/25/16 09:18 10/25/16 10:02 Range/Units Bedside Glucose (Misc Panel) 541 499 469 399 83-110 MG/DL Test 10/25/16 11:10 10/25/16 12:00 10/25/16 13:08 10/25/16 13:54 Range/Units Bedside Glucose (Misc Panel) 392 363 331 322 83-110 MG/DL Test 10/25/16 14:53 10/25/16 15:56 Range/Units Bedside Glucose (Misc Panel) 249 205 83-110 MG/DL Microbiology Microbiology 10/25/16 Blood Culture, Received Pending 10/25/16 Blood Culture, Received Pending 10/25/16 MRSA Screen, Received Pending 10/25/16 Urine Culture, Received Pending 10/25/16 Urine Culture, Received Pending Home Medications Scheduled (Combigan 0.2-0.5 %) 1 Fany Fany 1 DROP OU BID (Reported) Atorvastatin Calcium (Atorvastatin Calcium) 40 Mg Tab 40 MG PO DAILY (Reported ) Carvedilol (Coreg) 6.25 Mg Tab 6.25 MG PO BID (Reported) Cholecalciferol (Vitamin D) 1,000 Unit Tab 1,000 UNIT PO DAILY (Reported) Dorzolamide HCl (Trusopt) 2 % Fany 1 DROP OU BID (Reported) Finasteride (Finasteride) 5 Mg Tab 5 MG PO DAILY (Reported) Glipizide (Glipizide) 5 Mg Tab 5 MG PO DAILY (Reported) Levothyroxine Sodium (Synthroid) 75 Mcg Tab 75 MCG PO DAILY (Reported) Pregabalin (Lyrica) 50 Mg Cap 50 MG PO BID (Reported) Warfarin Sod (Coumadin) 2 Mg Tab 2 MG PO 2XW (Reported) MON,FRI Warfarin Sod (Warfarin Sodium) 1 Mg Tab 1 MG PO 5XW (Reported) SUN,,MON,,SAT Scheduled PRN Acetaminophen/Hydrocodone (Hydrocodone/Acetaminophen 5-325 mg) 1 Tab Tab 1 TAB PO Q6H PRN PRN PAIN (Reported) Current Medications Current Medications Acetaminophen/ Hydrocodone Bitart 1 tab 1 tab Q6HP PRN PO MILD/MODERATE PAIN ( PS 1-7) Last administered on 10/25/16 11:37; Start 10/25/16 at 10:00; Stop at 09:59 Aspirin (Aspirin Chewable) 162 mg ONCE ONCE PO Last administered on 10/25/16 15:40; Start 10/25/16 at 14:45; Stop 10/25/16 at 14:46; Status DC Aspirin (Ecotrin) 81 mg DAILY PO ; Start 10/26/16 at 09:00; Stop 11/25/16 at 08: 59 Atorvastatin Calcium (Lipitor) 40 mg DAILY PO Last administered on 10/25/16 08 :28; Start 10/25/16 at 09:00; Stop 11/24/16 at 08:59 Carvedilol (COReg) 6.25 mg BID PO ; Start 10/25/16 at 09:00; Stop 11/24/16 at 08: 59 Carvedilol (COReg) 6.25 mg ONCE ONCE PO Last administered on 10/25/16 07:21; Start 10/25/16 at 07:15; Stop 10/25/16 at 07:17; Status DC Dextrose/Water 1,000 ml @ 100 mls/hr Q10H IV ; Start 10/25/16 at 05:37; Stop at 14:08; Status DC Dorzolamide HCl (Trusopt Ocumeter Plus) 1 drop BID OU Last administered on 10/25 08:28; Start 10/25/16 at 09:00; Stop 11/24/16 at 08:59 Finasteride (Proscar) 5 mg DAILY PO Last administered on 10/25/16 08:28; Start 10/25/16 at 09:00; Stop 11/24/16 at 08:59 Home Med (Med Rec Complete!) ASDIRECTED XX ; Start 10/25/16 at 06:00; Stop 08/01 at 06:00; Status DC Insulin Human Regular 7 units 7 units STK-MED ONCE As Ordered ; Start 10/25/16 at 05:04; Stop 10/25/16 at 05:05; Status DC Insulin Human Regular/Sodium Chloride (HumuLIN R INSULIN/Nacl 0.9%) 100 ml @ 4 mls/hr Q24H IV Last administered on 10/25/16 08:22; Start 10/25/16 at 05:37; Stop 10/25/16 at 14:03; Status DC Insulin Human Regular/Sodium Chloride (HumuLIN R INSULIN/Nacl 0.9%) 100 ml @ 6 mls/hr [id number] IV ; Start 10/25/16 at 08:00; Stop 11/24/16 at 07:59 Levothyroxine Sodium (Synthroid) 0.075 mg DAILY@06 PO Last administered on 10/25 07:19; Start 10/25/16 at 06:00; Stop 11/24/16 at 05:59 Non-Formulary Medication ASDIRECTED XX Last administered on 10/25/16 13:10; Start 10/25/16 at 05:45; Stop 10/25/16 at 14:03; Status DC Non-Formulary Medication (Insulin Iv Rate Change Documentation ml/ Hr) ASDIRECTED XX Last administered on 10/25/16 14:09; Start 10/25/16 at 14:15; Stop 11/24/16 at 14:14 Potassium Chloride/Sodium Chloride (KCL 20MEQ in NS 1000ML) 1,000 ml @ 100 mls/ hr Q10H IV Last administered on 10/25/16 07:20; Start 10/25/16 at 05:45; Stop 11/24/16 at 05:44 Pregabalin (Lyrica) 50 mg BID PO Last administered on 10/25/16 08:27; Start at 09:00; Stop 11/01/16 at 08:59 Vitamin D (Vitamin D) 1,000 units DAILY PO Last administered on 10/25/16 08:28 ; Start 10/25/16 at 09:00; Stop 11/24/16 at 08:59 Warfarin Sodium (Coumadin) 2 mg DAILY@17 PO ; Start 10/25/16 at 17:00; Stop at 16:59 Allergies Allergies: Coded Allergies: Menthol (Verified Allergy, Unknown, RASH, 01/17/13) Pioglitazone (Verified Allergy, Unknown, 09/02/15) Simvastatin (Verified Adverse Reaction, Severe, MYALGIAS, 01/17/13) Ezetimibe (Verified Adverse Reaction, Mild, GI UPSET, 01/17/13) Gemfibrozil (Verified Adverse Reaction, Mild, GI UPSET, 01/17/13) Metformin (Verified Adverse Reaction, Mild, GI UPSET, 01/17/13) Sulfa Drugs (Verified Adverse Reaction, Mild, UPSET STOMACH, 01/17/13) Sulfa Drugs Cross Reactors (Verified Adverse Reaction, Mild, UPSET STOMACH , 01/17/13) Sulfamethoxazole (Verified Adverse Reaction, Mild, UPSET STOMACH, 01/17/13) Trimethoprim (Verified Adverse Reaction, Mild, UPSET STOMACH, 01/17/13) Tramadol (Verified Adverse Reaction, Unknown, GI UPSET, 01/17/13) Edmar Burris Oct 25, 2016 17:28
[2016-10-25 19:04] LABS: ALBUMIN 2.1 GM/DL (3.2-5.2); CALCIUM LEVEL 8.9 MG/DL (8.8-10.2); CREATININE FOR GFR 1.88 MG/DL (0.70-1.30); GLOMERULAR FILTRATION RATE 36.6 (>35); PHOSPHORUS LEVEL 1.8 MG/DL (2.5-4.9); POTASSIUM SERUM 4.3 MEQ/L (3.5-5.1)
--- NOTE | 2016-10-25 19:54 | ECGEPIP ---
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
[2016-10-25] MEDS: ATENOLOL 12.5MG PER 1/2 TABLET PO SCH (20:13)
--- NOTE | 2016-10-25 20:47 | ECGEPIP ---
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
[2016-10-25] MEDS ORDERED: VANCOMYCIN HCL 1,000 MG, VIAL MATE ADAPTER 1 EACH in D5W 250 ML IV ONE (23:00)
[2016-10-26] VITALS (9 sets, daily range): BP systolic 107–169; BP diastolic 58–86
[2016-10-26] MEDS: INSULIN IV RATE CHANGE DOCUMENTATION ML/HR XX SCH ×2 (02:00→04:00)
[2016-10-26] MEDS: INSULIN HUMAN REGULAR 100 UNITS in NS 99 ML IV SCH (02:53)
[2016-10-26] MEDS: KCL 20MEQ in NS 1000ML 1,000 ML IV SCH (02:53)
[2016-10-26] MEDS: LEVOTHYROXINE 0.075 MG TAB (75 MCG) PO SCH (05:14)
[2016-10-26 05:36] LABS: MEAN CORPUSCULAR HEMOGLOBIN 27.9 pg (27.0-33.0); MEAN CORPUSCULAR HGB CONC 31.5 g/dl (32.0-36.5); MEAN CORPUSCULAR VOLUME 88.8 fl (80.0-96.0); RED CELL DISTRIBUTION WIDTH 15.9 % (11.5-14.5); WHITE BLOOD COUNT 6.9 K/mm3 (4.0-10.0)
[2016-10-26 05:39] LABS: INR 1.54
[2016-10-26 06:00] LABS: ALBUMIN 1.9 GM/DL (3.2-5.2); CALCIUM LEVEL 8.5 MG/DL (8.8-10.2); CREATININE FOR GFR 1.89 MG/DL (0.70-1.30); GLOMERULAR FILTRATION RATE 36.4 (>35); PHOSPHORUS LEVEL 1.8 MG/DL (2.5-4.9); POTASSIUM SERUM 4.5 MEQ/L (3.5-5.1)
[2016-10-26] MEDS ORDERED: GLUCAGON FOR INJ 1 MG VIAL (J1610) SC PRN (08:00)
[2016-10-26] MEDS ORDERED: GLUCOSE 4 GM CHEW TABLET PO PRN (08:00)
[2016-10-26] MEDS ORDERED: DEXTROSE 50% 50 ML SYRINGE IV PRN (08:00)
[2016-10-26] MEDS ORDERED: VANCOMYCIN HCL 1,000 MG, VIAL MATE ADAPTER 1 EACH in D5W 250 ML IV SCH (08:00)
--- NOTE | 2016-10-26 08:26 | IPN ---
DATE: 10/26/2016 Ignacio is seen in ICU. I saw him early. He was just waking up. He said he felt well. No chest pain or shortness of breath. His blood cultures have returned showing gram positive cocci in pairs, chains and clusters on two separate cultures. Nursing staff notes that he has had one of his urostomy tubes with decreased drainage and apparently he flushes this at home, so we need to flush this here as well. His urine cultures are still pending. He was seen in consultation by Dr. Burris yesterday for his non-ST segment elevation myocardial infarction. His beta-sita was changed. Note made that he did not want invasive management with cardiac catheterization or PCI, per patient request. PHYSICAL EXAMINATION: 153/80, pulse 92, respiratory rate 18, 93% oxygen saturation, 97.8 degrees. Resting comfortably, drowsy, having just woken up. No jugular venous distention (JVD). Lungs decreased breath sounds, but clear. Heart regular rate and rhythm, no murmur. Abdomen soft, nontender, no masses. Trace peripheral edema. LABORATORIES: Blood cultures as above. White count 6.9, hemoglobin 11.8, platelets 112. Sodium 151, potassium 4.5, BUN 65, creatinine 1.9. He had a hemoglobin A1c ordered, which we canceled (this is an outpatient test and he has one scheduled for November). INR today is 1.54. IMPRESSION: 1. Uncontrolled type 2 diabetes with hyperosmolar nonketotic hyperglycemia. I will stop the insulin drip, put him on a sliding scale of insulin based upon fingerstick blood sugars. He takes glipizide at home. 2. Non-ST segment elevation myocardial infarction. Appreciate cardiology's assistance. Beta-sita changed. Continue statin. 3. History of pulmonary embolism. Warfarin dose increased in the face of subtherapeutic INR. 4. Acute kidney injury. Baseline creatinine is around 1.9. He is at his baseline. Need to watch this with the vancomycin exposure. 5. Positive blood cultures, gram positive cocci in pairs, chains and clusters. Continue vancomycin until the cultures are identified. Echocardiogram ordered. Clinical pharmacology consult for vancomycin dosing. 6. Urinary retention/presence of bilateral nephrostomy drainage tubes. These can be flushed as he does at home with sterile water. If he runs into a problem with it, Dr. Shay knows him well and we could consult him from interventional radiology. 7. Hypothyroidism. Continue current dose of Levothroid. 8. Parkinson's disease. Stable. Limits activity. Limits rehabilitation potential. 9. Sacral decubitus ulcer, stage 3. Wound consult ordered. 10. Hypernatremia. Improved on IV fluids. Watch for volume overload.
[2016-10-26] MEDS: KCL 20MEQ IN 0.45NS 1000ML 1,000 ML IV SCH (08:43)
[2016-10-26] MEDS: ATENOLOL 12.5MG PER 1/2 TABLET PO SCH ×2 (08:44→21:03)
[2016-10-26] MEDS: DORZOLAMIDE 2% OPHTH SOLN 10 ML BTL OU SCH ×2 (08:44→21:04)
[2016-10-26] MEDS: PREGABALIN 50 MG CAP (LYRICA) PO SCH ×2 (08:44→21:01)
[2016-10-26] MEDS: ASPIRIN 81 MG ENTERIC TAB PO SCH (08:44)
[2016-10-26] MEDS: VITAMIN D 1,000 INTERNATIONAL UNITS TABLET PO SCH (08:44)
[2016-10-26] MEDS: FINASTERIDE 5 MG TAB PO SCH (08:44)
[2016-10-26] MEDS: ATORVASTATIN 20 MG TAB PO SCH (08:44)
[2016-10-26] MEDS: VANCOMYCIN HCL 750 MG, VIAL MATE ADAPTER 1 EACH in D5W 250 ML IV SCH (09:56)
[2016-10-26] MEDS: NORCO, ANEXSIA 5/325MG TABLET (HYDROcodone/ACETAMINOPHEN) PO PRN ×2 (09:59→16:47)
--- NOTE | 2016-10-26 10:41 | ECGEPIP ---
Stationary ECG Study [facility] Test Date: 2016-10-26 Pat Name: HEMA DOSS Department: Room: [place] [address] Gender: M Jr. Java Developer: VANESA : 1930 Requested By: Edmar Burris Order Number: [id number] Reading MD: Edmar Posada Measurements Intervals [place] Rate: 87 P: 23 [place]: 162 QRS: -30 QRSD: 89 T: 16 QT: 367 QTc: 442 Interpretive Statements SINUS RHYTHM WITH SINUS ARRHYTHMIA Rate decreased from 10-25-16 LEFT AXIS DEVIATION Delayed anterior R wave progression Nonspecific T wave abnormality Electronically Signed On 10-26-2016 10:41:07 EST by Edmar Posada
[2016-10-26] MEDS: HumaLOG INSULIN (NovoLOG) PER UNIT SC SCH ×3 (11:30→21:04)
--- NOTE | 2016-10-26 15:00 | PHACANCOPD ---
PHARMACY VANCOMYCIN DOSING Pt Demographics Demographics Patient Age:85 , Weight:78.800 , Gender: male Adjusted Body Weight Date: 10/26/16, Adjusted Body Weight: Kg Events Past 24 Hours Events Past 24 Hours: YES: Pending Diagnostics Vancomycin Vancomycin indication: bacteremia Vancomycin Target Ranges: 10-20 mcg/ml Vancomycin Load Y/N: Yes Load Dose Date Time Vancomycin Load Dose: 1g Date: 10/25/16 Time: 2300 Vancomycin Dose Date: 10/26/16. Current Vancomycin Dose: [750mg IV Q24H] Intermittent Dosing?: No Labs Labs Item Value Date Time White Blood Count 6.9 K/mm3 10/26/16516 White Blood Count 9.2 K/mm3 10/25/16 0201 Creatinine 1.89 MG/DL H 10/26/16 05 Blood Urea Nitrogen 65 MG/DL H 10/26/16 0516 Micro Microbiology 10/25/16 Blood Culture - Preliminary, Resulted 10/25/16 Blood Culture - Preliminary, Resulted 10/25/16 MRSA Screen - Final, Complete 10/25/16 Urine Culture - Preliminary, Resulted Yeast Like Organism 10/25/16 Urine Culture - Preliminary, Resulted Yeast Like Organism Creatinine Clearance Date:10/26/16. Estimated Creatinine Clearance: [30 ml/min]. Assessment and Plan Maintaining Current Dose?: Yes Reason for dose change: No Dose Change Pharmacist Note Pharmacist Note Date: 10/26/16. Pharmacist note: Day #1 vancomycin initiated with a 1g dose given 10/25 @ 2300, followed by a maintenance regimen of 750 mg IV Q24H for the treatment of bacteremia - aiming for a goal trough of 10-20 mcg/ml pending lab work. WBC is currently WNL, and patient is afebrile. No PMH of MRSA or vanco use here at [facility]. We will continue to monitor the patient and schedule a trough accordingly. [facility] Oct 26, 2016 15:00
[2016-10-26] MEDS: WARFARIN SOD 3 MG TAB PO SCH (16:46)
[2016-10-26 18:30] LABS: ALBUMIN 1.8 GM/DL (3.2-5.2); CALCIUM LEVEL 8.6 MG/DL (8.8-10.2); CREATININE FOR GFR 1.73 MG/DL (0.70-1.30); GLOMERULAR FILTRATION RATE 40.3 (>35); PHOSPHORUS LEVEL 2.1 MG/DL (2.5-4.9); POTASSIUM SERUM 4.7 MEQ/L (3.5-5.1)
[2016-10-27] VITALS (10 sets, daily range): BP systolic 114–152; BP diastolic 57–75
[2016-10-27] MEDS: KCL 20MEQ IN 0.45NS 1000ML 1,000 ML IV SCH (03:46)
[2016-10-27 05:24] LABS: INR 1.8
[2016-10-27] MEDS: LEVOTHYROXINE 0.075 MG TAB (75 MCG) PO SCH (05:31)
[2016-10-27 05:35] LABS: MEAN CORPUSCULAR HEMOGLOBIN 28.4 pg (27.0-33.0); MEAN CORPUSCULAR HGB CONC 31.7 g/dl (32.0-36.5); MEAN CORPUSCULAR VOLUME 89.6 fl (80.0-96.0); RED CELL DISTRIBUTION WIDTH 16.1 % (11.5-14.5); WHITE BLOOD COUNT 6.9 K/mm3 (4.0-10.0)
[2016-10-27 06:16] LABS: ALBUMIN 1.9 GM/DL (3.2-5.2); CALCIUM LEVEL 8.2 MG/DL (8.8-10.2); CREATININE FOR GFR 1.72 MG/DL (0.70-1.30); GLOMERULAR FILTRATION RATE 40.5 (>35); PHOSPHORUS LEVEL 2.5 MG/DL (2.5-4.9); POTASSIUM SERUM 4.8 MEQ/L (3.5-5.1)
--- NOTE | 2016-10-27 07:11 | EDDOCDS ---
Physician Documentation [facility] Name: Ignacio Borden Age: 85 yrs Sex: Male : 1930 Arrival Date: 10/25/2016 Time: 01:45 Bed Admit Hold Private MD: Umer Khan Disposition: 10/25/16 04:58 Hospitalization ordered by Hamida Crooks for Inpatient Admission. Preliminary diagnosis are Diabetes mellitus due to underlying condition with hyperosmolarity, Acute kidney failure, Urinary tract infection, site not specified - bilateral pyelonephritis, Altered mental status, unspecified. - Bed requested for ICU. - Status is Inpatient Admission. af2 - Condition is Stable. - Problem is an acute exacerbation. - Symptoms have improved. Historical: - Allergies: menthol; - Home Meds: 1. atorvastatin 40 mg oral tab 1 tab once daily 2. Coreg 6.25 mg Oral tab 1 tab 2 times per day 3. Proscar 5 mg Oral tab 1 tab once daily 4. Coumadin 1 mg Oral tab 1mg on Monday/ Monday, 2mg T,mon, , Mon, Sun 5. Glucotrol 5 mg Oral tab 1 tab once daily 6. Trusopt 2 % Opht drop twice a day 7. Vitamin D Oral 5000 unit daily 8. Levothroid 75 mcg Oral tab 1 tab once daily 9. pregabalin 50 mg Oral cap 1 cap twice a day 10. combigan 0.2-0.5% 1 drop in eye twice daily - PMHx: CAD; Hypercholesterolemia; Hypertension; Kidney stones; PE; Diabetes - NIDDM: uncontrolled; - PSHx: YODIT nephrostomy; back surgery; Cataract Surgery- Bilateral; right knee; - Social history: Smoking status: Patient states was never smoker of tobacco. No barriers to communication noted, The patient speaks fluent Arabic. - Family history: Not pertinent. - : The pt / caregiver states he / she is on anticoagulants: coumadin. Home medication list is obtained from the patient. - Exposure Risk Screening:: None identified. Vital Signs: 10/25 01:53 BP 186 / 90 (auto/); af2 01:55 Pulse 118 MON; Pulse Ox 93% ; af2 01:57 BP 186 / 90; Pulse 120; Resp 18; Temp 99.7(O); Pulse Ox 93% on R/A; Weight 77.11 kg / cmb 170 lbs; Height 5 ft. 10 in. (177.80 cm); Pain 10/10; 02:05 Pulse 120 MON; Resp 20 S; Pulse Ox 93% on R/A; af2 02:08 BP 193 / 94 (auto/); af2 02:23 BP 147 / 74 (auto/); af2 02:52 BP 161 / 95 (auto/); af2 02:53 Pulse 116 MON; Resp 20 S; Pulse Ox 92% on R/A; af2 03:08 BP 195 / 102 (auto/); af2 03:26 Pulse 112 MON; Resp 20; Pulse Ox 93% on R/A; af2 03:38 BP 200 / 100 (auto/); af2 03:38 Pulse 110 MON; Resp 20 S; af2 03:41 BP 197 / 99 (auto/); af2 03:41 Pulse 112 MON; Pulse Ox 92% ; af2 04:38 BP 134 / 94 (auto/); af2 04:38 Pulse 126 MON; af2 04:56 BP 167 / 82 (auto/); af2 04:57 Pulse 120 MON; Resp 20 S; Pulse Ox 94% on R/A; af2 05:47 BP 197 / 105 LA; Pulse 122; Resp 18 S; Temp 98.7(O); Pulse Ox 94% on R/A; af2 01:57 Body Mass Index 24.39 (77.11 kg, 177.80 cm) cmb MDM: 02:30 Transition Advisor/Pulse Ox/q 30 min VS ordered. mm11 02:30 IV Saline Lock ordered. mm11 02:30 Rhythm Strip to chart ordered. mm11 02:30 Undress patient appropriately for examination ordered. mm11 02:30 Misc Culturist Order ordered. mm11 02:31 Basic Metabolic Profile Ordered. EDMS 02:31 CBC with Diff Ordered. EDMS 02:31 Cardiac Injury Profile Ordered. EDMS 02:31 Partial Thromboplastin Time Ordered. EDMS 02:31 Prothrombin Time Profile\E\INR Ordered. EDMS 02:31 Troponin Ordered. EDMS 02:31 portable chest Ordered. EDMS 02:31 ECG WITH READING ER PHYS+CARDIAG ordered. EDMS 02:31 CT ABD & PELVIS: No Contrast Ordered. EDMS 02:31 CT Spine, Lumbar W/o Contrast Ordered. EDMS 02:46 Misc Culturist Order complete. jlm 02:47 URINALYSIS Ordered. EDMS 02:47 URINALYSIS Ordered. EDMS 02:47 URINE CULTURE Ordered. EDMS 02:48 URINE CULTURE Ordered. EDMS 03:25 CBC with Diff Reviewed. mm11 03:25 Prothrombin Time Profile\E\INR Reviewed. mm11 03:25 URINALYSIS Reviewed. mm11 03:25 URINALYSIS Reviewed. mm11 03:25 Partial Thromboplastin Time Reviewed. mm11 03:41 Venous Blood Gas (large pea green tube on ice) Ordered. EDMS 03:41 Osmolality, Serum Ordered. EDMS 03:51 Financial registration complete. slh 04:08 Basic Metabolic Profile Reviewed. mm11 04:08 Osmolality, Serum Reviewed. mm11 04:08 Cardiac Injury Profile Reviewed. mm11 04:08 Troponin Reviewed. mm11 04:08 CT Spine, Lumbar W/o Contrast Reviewed. mm11 04:19 Venous Blood Gas (large pea green tube on ice) Reviewed. mm11 04:19 Liver Profile Ordered. EDMS 04:36 [facility] [place] Agreement was scanned into [employer] and attached to record. [facility] 04:38 BED REQUEST+ADM ordered. EDMS 04:38 CT ABD & PELVIS: No Contrast Reviewed. mm11 04:41 Insulin Regular Human (0.1 units/kg) 7 units IVP once ordered. mm11 04:41 NS 0.9% 1000 ml IV at bolus once ordered. mm11 04:53 Admission / Observation Status ordered. EDMS 05:01 NPO DIET ordered. EDMS 05:41 MRSA SCREEN Ordered. EDMS 05:45 RENAL PROFILE Ordered. EDMS 05:45 RENAL PROFILE Ordered. EDMS 05:45 RENAL PROFILE Ordered. EDMS 05:45 RENAL PROFILE Ordered. EDMS 05:46 RENAL PROFILE Ordered. EDMS 05:47 TROPONIN Ordered. EDMS 05:47 TROPONIN Ordered. EDMS 05:58 BLOOD CULTURES Ordered. EDMS 05:58 BLOOD CULTURES Ordered. EDMS 07:52 T-Sheet-- Draft Copy was scanned into [employer] and attached to record. 14:51 ECG/EKG was scanned into [employer] and attached to record. gb Administered Medications: 05:07 Drug: Insulin Regular Human (0.1 units/kg) 7 units [insulin regular human 100 unit/mL sls1 injection solution (0.07 mL)] {Co-Signature: cp1 (Veda Longoria FLIGHT OPERATION COORDINATOR).} Route: IVP; Site: right antecubital; 05:07 Drug: NS 0.9% 1000 ml [sodium chloride 0.9 % intravenous solution] Route: IV; Rate: sls1 bolus; Site: right antecubital; Signatures: Dispatcher [employer] EDMS Gricelda FABIAN, Alina, FRANSISCO RN Marli Monterroso, Reg Reg gb Uriel Mitchell, DO mm11 Altagracia Varma, Seismograph Supervisor Unit Jen Bravo Amber, RN RN af2 Shameka Wilson RN sls1 Veda Longoria LPN cp1 The chart was reviewed and I authenticate all verbal orders and agree with the evaluation and treatment provided.Attachments: 04:36 [facility] Payment Agreement [facility] 07:52 T-Sheet-- Draft Copy gb 14:51 ECG/EKG Chart Complete MTDD
--- NOTE | 2016-10-27 07:11 | EDDOCDS ---
Physician Documentation [facility] Name: Ignacio Borden Age: 85 yrs Sex: Male : 1930 Arrival Date: 10/25/2016 Time: 01:45 Bed Admit Hold Private MD: Umer Khan Disposition: 10/25/16 04:58 Hospitalization ordered by Hamida Crooks for Inpatient Admission. Preliminary diagnosis are Diabetes mellitus due to underlying condition with hyperosmolarity, Acute kidney failure, Urinary tract infection, site not specified - bilateral pyelonephritis, Altered mental status, unspecified. - Bed requested for ICU. - Status is Inpatient Admission. af2 - Condition is Stable. - Problem is an acute exacerbation. - Symptoms have improved. Historical: - Allergies: menthol; - Home Meds: 1. atorvastatin 40 mg oral tab 1 tab once daily 2. Coreg 6.25 mg Oral tab 1 tab 2 times per day 3. Proscar 5 mg Oral tab 1 tab once daily 4. Coumadin 1 mg Oral tab 1mg on Monday/ Monday, 2mg T,mon, , Mon, Sun 5. Glucotrol 5 mg Oral tab 1 tab once daily 6. Trusopt 2 % Opht drop twice a day 7. Vitamin D Oral 5000 unit daily 8. Levothroid 75 mcg Oral tab 1 tab once daily 9. pregabalin 50 mg Oral cap 1 cap twice a day 10. combigan 0.2-0.5% 1 drop in eye twice daily - PMHx: CAD; Hypercholesterolemia; Hypertension; Kidney stones; PE; Diabetes - NIDDM: uncontrolled; - PSHx: YODIT nephrostomy; back surgery; Cataract Surgery- Bilateral; right knee; - Social history: Smoking status: Patient states was never smoker of tobacco. No barriers to communication noted, The patient speaks fluent Telugu. - Family history: Not pertinent. - : The pt / caregiver states he / she is on anticoagulants: coumadin. Home medication list is obtained from the patient. - Exposure Risk Screening:: None identified. Vital Signs: 10/25 01:53 BP 186 / 90 (auto/); af2 01:55 Pulse 118 MON; Pulse Ox 93% ; af2 01:57 BP 186 / 90; Pulse 120; Resp 18; Temp 99.7(O); Pulse Ox 93% on R/A; Weight 77.11 kg / cmb 170 lbs; Height 5 ft. 10 in. (177.80 cm); Pain 10/10; 02:05 Pulse 120 MON; Resp 20 S; Pulse Ox 93% on R/A; af2 02:08 BP 193 / 94 (auto/); af2 02:23 BP 147 / 74 (auto/); af2 02:52 BP 161 / 95 (auto/); af2 02:53 Pulse 116 MON; Resp 20 S; Pulse Ox 92% on R/A; af2 03:08 BP 195 / 102 (auto/); af2 03:26 Pulse 112 MON; Resp 20; Pulse Ox 93% on R/A; af2 03:38 BP 200 / 100 (auto/); af2 03:38 Pulse 110 MON; Resp 20 S; af2 03:41 BP 197 / 99 (auto/); af2 03:41 Pulse 112 MON; Pulse Ox 92% ; af2 04:38 BP 134 / 94 (auto/); af2 04:38 Pulse 126 MON; af2 04:56 BP 167 / 82 (auto/); af2 04:57 Pulse 120 MON; Resp 20 S; Pulse Ox 94% on R/A; af2 05:47 BP 197 / 105 LA; Pulse 122; Resp 18 S; Temp 98.7(O); Pulse Ox 94% on R/A; af2 01:57 Body Mass Index 24.39 (77.11 kg, 177.80 cm) cmb MDM: 02:30 Gate Operator/Pulse Ox/q 30 min VS ordered. mm11 02:30 IV Saline Lock ordered. mm11 02:30 Rhythm Strip to chart ordered. mm11 02:30 Undress patient appropriately for examination ordered. mm11 02:30 Misc Mechanical Technical Service Specialist Order ordered. mm11 02:31 Basic Metabolic Profile Ordered. EDMS 02:31 CBC with Diff Ordered. EDMS 02:31 Cardiac Injury Profile Ordered. EDMS 02:31 Partial Thromboplastin Time Ordered. EDMS 02:31 Prothrombin Time Profile\E\INR Ordered. EDMS 02:31 Troponin Ordered. EDMS 02:31 portable chest Ordered. EDMS 02:31 ECG WITH READING ER PHYS+CARDIAG ordered. EDMS 02:31 CT ABD & PELVIS: No Contrast Ordered. EDMS 02:31 CT Spine, Lumbar W/o Contrast Ordered. EDMS 02:46 Misc Mechanical Technical Service Specialist Order complete. jlm 02:47 URINALYSIS Ordered. EDMS 02:47 URINALYSIS Ordered. EDMS 02:47 URINE CULTURE Ordered. EDMS 02:48 URINE CULTURE Ordered. EDMS 03:25 CBC with Diff Reviewed. mm11 03:25 Prothrombin Time Profile\E\INR Reviewed. mm11 03:25 URINALYSIS Reviewed. mm11 03:25 URINALYSIS Reviewed. mm11 03:25 Partial Thromboplastin Time Reviewed. mm11 03:41 Venous Blood Gas (large pea green tube on ice) Ordered. EDMS 03:41 Osmolality, Serum Ordered. EDMS 03:51 Financial registration complete. slh 04:08 Basic Metabolic Profile Reviewed. mm11 04:08 Osmolality, Serum Reviewed. mm11 04:08 Cardiac Injury Profile Reviewed. mm11 04:08 Troponin Reviewed. mm11 04:08 CT Spine, Lumbar W/o Contrast Reviewed. mm11 04:19 Venous Blood Gas (large pea green tube on ice) Reviewed. mm11 04:19 Liver Profile Ordered. EDMS 04:36 [facility] [place] Payment Agreement was scanned into [employer] and attached to record. [facility] 04:38 BED REQUEST+ADM ordered. EDMS 04:38 CT ABD & PELVIS: No Contrast Reviewed. mm11 04:41 Insulin Regular Human (0.1 units/kg) 7 units IVP once ordered. mm11 04:41 NS 0.9% 1000 ml IV at bolus once ordered. mm11 04:53 Admission / Observation Status ordered. EDMS 05:01 NPO DIET ordered. EDMS 05:41 MRSA SCREEN Ordered. EDMS 05:45 RENAL PROFILE Ordered. EDMS 05:45 RENAL PROFILE Ordered. EDMS 05:45 RENAL PROFILE Ordered. EDMS 05:45 RENAL PROFILE Ordered. EDMS 05:46 RENAL PROFILE Ordered. EDMS 05:47 TROPONIN Ordered. EDMS 05:47 TROPONIN Ordered. EDMS 05:58 BLOOD CULTURES Ordered. EDMS 05:58 BLOOD CULTURES Ordered. EDMS 07:52 T-Sheet-- Draft Copy was scanned into [employer] and attached to record. 14:51 ECG/EKG was scanned into [employer] and attached to record. gb Administered Medications: 05:07 Drug: Insulin Regular Human (0.1 units/kg) 7 units [insulin regular human 100 unit/mL sls1 injection solution (0.07 mL)] {Co-Signature: cp1 (Veda Longoria INTERNATIONAL STUDENT COUNSELOR).} Route: IVP; Site: right antecubital; 05:07 Drug: NS 0.9% 1000 ml [sodium chloride 0.9 % intravenous solution] Route: IV; Rate: sls1 bolus; Site: right antecubital; Signatures: Dispatcher [employer] EDMS Gricelda FABIAN, Alina, FRANSISCO RN Marli Monterroso, Reg Reg gb Uriel Mitchell, DO mm11 Altagracia Varma, Tugboat Dispatcher Unit Jen Bravo Amber, RN RN af2 Shameka Wilson RN sls1 Veda Longoria LPN cp1 The chart was reviewed and I authenticate all verbal orders and agree with the evaluation and treatment provided.Attachments: 04:36 [facility] Payment Agreement [facility] 07:52 T-Sheet-- Draft Copy gb 14:51 ECG/EKG Chart Complete MTDD
--- NOTE | 2016-10-27 07:11 | EDDOCDS ---
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 reports recent lower back pain radiating down into buttocks area. Presenting complaint: EMS states: states he has been feeling weak in the legs and stuck in his chair since Monday, decreased appetite- only ate a cookie today. Adult Sepsis Screening: The patient does not have new or worsening altered mentation. Patient's respiratory rate is less than 22. Systolic blood pressure is greater than 100. Patient has a qSOFA score of 0- Negative Sepsis Screen. Suicide/Homicide risk assessment- the patient denies having any suicidal and/or homicidal ideations and does not present with any other emotional, behavioral or mental health complaints. 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 Transition of care: patient was not received from another setting of care. 01:51 Acuity: SHELBIE Level 3 af2 01:51 Method Of Arrival: Ambulance af2 Triage Assessment: 02:00 General: Appears in no apparent distress, Behavior is appropriate for age. Pain: af2 Location: buttocks Pain currently is 6 out of 10 on a pain scale. Respiratory: Airway is patent Respiratory effort is even, unlabored, Breath sounds are diminished bilaterally. : Patel in place to gravity drainage. Musculoskeletal: Reports pain in back and buttocks. Historical: - Allergies: menthol; - Home Meds: 1. atorvastatin 40 mg oral tab 1 tab once daily 2. Coreg 6.25 mg Oral tab 1 tab 2 times per day 3. Proscar 5 mg Oral tab 1 tab once daily 4. Coumadin 1 mg Oral tab 1mg on Monday/ Monday, 2mg T,mon, Th, Sat, Sun 5. Glucotrol 5 mg Oral tab 1 tab once daily 6. Trusopt 2 % Opht drop twice a day 7. Vitamin D Oral 5000 unit daily 8. Levothroid 75 mcg Oral tab 1 tab once daily 9. pregabalin 50 mg Oral cap 1 cap twice a day 10. combigan 0.2-0.5% 1 drop in eye twice daily - PMHx: CAD; Hypercholesterolemia; Hypertension; Kidney stones; PE; Diabetes - NIDDM: uncontrolled; - PSHx: YODIT nephrostomy; back surgery; Cataract Surgery- Bilateral; right knee; - Social history: Smoking status: Patient states was never smoker of tobacco. No barriers to communication noted, The patient speaks fluent Estonian. - Family history: Not pertinent. - : The pt / caregiver states he / she is on anticoagulants: coumadin. Home medication list is obtained from the patient. - Exposure Risk Screening:: None identified. Screenin:03 Screening information is obtained from the patient. Fall risk: At risk due to age, The af2 following interventions are performed due to a positive Fall Risk Screen: Fall Risk is added to Special Handling on the patient Summary Screen. A Fall Risk Bracelet was applied to the patient. Side Rails are placed in the up position. A Call Corbett is given with instruction to call for help when getting out of bed. Assistance ADL's: Requires assistance with meal preparation, this assistance is provided by family members, bathing, assistance is provided by dressing, assistance is provided by toileting, assistance is provided by ambulation, assistance is provided by housework, assistance is provided by medication administration, assistance is provided by. Abuse/DV Screen: The patient / caregiver reports he/she is: not in a situation that causes fear, pain or injury. Nutritional screening: No deficits noted. Advance Directives: Further advance directive information is declined. home support is adequate. Assessment: 02:50 General: Appears in no apparent distress, Behavior is cooperative. Neurological: Level af2 of Consciousness is awake, alert, obeys commands. Cardiovascular: Rhythm is sinus tachycardia No ectopy. Chest pain is denied. Respiratory: Airway is patent Respiratory effort is even, unlabored, Respiratory pattern is regular, symmetrical, Breath sounds are diminished bilaterally. Derm: Skin is normal. 03:03 General: see triage note.. af2 03:40 General: Critical value of glucose of [address] Mitchell and assigned cp1 nurse.. 04:45 General: Appears in no apparent distress, Behavior is cooperative. General: af2 continues with pt at bedside at this time. . Neurological: Level of Consciousness is awake, alert, obeys commands. Cardiovascular: Rhythm is sinus tachycardia No ectopy. Respiratory: Airway is patent Respiratory effort is even, unlabored. Derm: Skin is normal. 05:43 General: Appears in no apparent distress, Behavior is cooperative, pt lying on af2 stretcher resting quietly with eyes closed. . Neurological: Level of Consciousness is awake, alert. Cardiovascular: Rhythm is sinus tachycardia No ectopy. Respiratory: Airway is patent Respiratory effort is even, unlabored. Derm: Skin is normal. Vital Signs: 01:53 BP 186 / 90 (auto/); af2 01:55 Pulse 118 MON; Pulse Ox 93% ; af2 01:57 BP 186 / 90; Pulse 120; Resp 18; Temp 99.7(O); Pulse Ox 93% on R/A; Weight 77.11 kg; cmb Height 5 ft. 10 in. (177.80 cm); Pain 10/10; 02:05 Pulse 120 MON; Resp 20 S; Pulse Ox 93% on R/A; af2 02:08 BP 193 / 94 (auto/); af2 02:23 BP 147 / 74 (auto/); af2 02:52 BP 161 / 95 (auto/); af2 02:53 Pulse 116 MON; Resp 20 S; Pulse Ox 92% on R/A; af2 03:08 BP 195 / 102 (auto/); af2 03:26 Pulse 112 MON; Resp 20; Pulse Ox 93% on R/A; af2 03:38 BP 200 / 100 (auto/); af2 03:38 Pulse 110 MON; Resp 20 S; af2 03:41 BP 197 / 99 (auto/); af2 03:41 Pulse 112 MON; Pulse Ox 92% ; af2 04:38 BP 134 / 94 (auto/); af2 04:38 Pulse 126 MON; af2 04:56 BP 167 / 82 (auto/); af2 04:57 Pulse 120 MON; Resp 20 S; Pulse Ox 94% on R/A; af2 05:47 BP 197 / 105 LA; Pulse 122; Resp 18 S; Temp 98.7(O); Pulse Ox 94% on R/A; af2 01:57 Body Mass Index 24.39 (77.11 kg, 177.80 cm) cmb Vitals: :57 Log In Time N/A - ambulance arrival. cmb ED Course: :46 Valeria McginnisRN is Primary Nurse. jl 01:46 Patient visited by Altagracia Varma, Size Marker. jlm 01:46 Umer Khan MD is Private Physician. jlm 01:46 Patient moved to [facility] 01:54 Triage Initiated af2 01:57 Pt greeted and oriented to ED. Patient advised of names of staff involved in care, cmb location of call corbett, wait times and NPO status. Patient has correct armband on for positive identification. Placed in gown. Bed in low position. Call light in reach. Side rails up X2. water project manager on. Pulse ox on. NIBP on. 02:03 Patient visited by Valeria Mcginnis RN. af2 02:15 Uriel Mitchell DO is Attending Physician. mm11 02:15 Patient visited by Uriel Mitchell DO. mm11 02:32 Patient visited by Uriel Mitchell DO. mm11 02:32 Troponin Sent. af2 02:32 Prothrombin Time Profile\E\INR Sent. af2 02:32 Partial Thromboplastin Time Sent. af2 02:32 Cardiac Injury Profile Sent. af2 02:33 CBC with Diff Sent. af2 02:33 Basic Metabolic Profile Sent. af2 02:55 Patient visited by Gerhard Mcknight. jp4 02:55 EKG done. (by ED staff). Reviewed by Uriel Mitchell DO. jp4 03:03 URINALYSIS Sent. af2 03:03 URINALYSIS Sent. af2 03:03 URINE CULTURE Sent. af2 03:03 URINE CULTURE Sent. af2 03:42 Patient visited by Uriel Mitchell DO. mm11 04:01 CT Spine, Lumbar W/o Contrast Returned. EDMS 04:21 Patient visited by Uriel Mitchell DO. mm11 04:36 [facility] Payment Agreement was scanned into [employer] and attached to record. [facility] 04:36 CT ABD & PELVIS: No Contrast Returned. EDMS 04:46 Hamida Crooks learning specialist. ys2 04:57 Hamida Crooks is Hospitalizing Provider. mm11 05:14 Patient moved to Admit Hold sls1 05:23 The patient / caregiver is instructed regarding the plan of care and ED course. af2 05:24 Inserted saline lock: 20 gauge in right forearm and blood collected. The patient af2 tolerated the procedure well. No procedures done that require assistance. 05:48 Patient visited by Valeria Mcignnis RN. af2 07:52 T-Sheet-- Draft Copy was scanned into [employer] and attached to record. gb 14:51 ECG/EKG was scanned into [employer] and attached to record. gb Administered Medications: 05:07 Drug: Insulin Regular Human (0.1 units/kg) 7 units [insulin regular human 100 unit/mL sls1 injection solution (0.07 mL)] {Co-Signature: cp1 (Veda Longoria CHILDREN'S LIBRARIAN).} Route: IVP; Site: right antecubital; 05:07 Drug: NS 0.9% 1000 ml [sodium chloride 0.9 % intravenous solution] Route: IV; Rate: sls1 bolus; Site: right antecubital; Order Results: Lab Order: Basic Metabolic Profile; [facility] 10/25/16 02:01 Test: GLUCOSE, FASTING; Value: 722; Range: 83-110; Abnormal: Above upper panic limits; Units: MG/DL; Status: F Test: BLOOD UREA NITROGEN; Value: 62; Range: 7-18; Abnormal: Above high normal; Units: MG/DL; Status: F Test: CREATININE FOR GFR; Value: 2.28; Range: 0.70-1.30; Abnormal: Above high normal; Units: MG/DL; Status: F Test: GLOMERULAR FILTRATION RATE; Value: 29.3; Range: >35; Abnormal: Below low normal; Status: F Test: SODIUM LEVEL; Value: 140; Range: 136-145; Units: MEQ/L; Status: F Test: POTASSIUM SERUM; Value: 4.8; Range: 3.5-5.1; Units: MEQ/L; Status: F Test: CHLORIDE LEVEL; Value: 103; Range: 98-107; Units: MEQ/L; Status: F Test: CARBON DIOXIDE LEVEL; Value: 23; Range: 21-32; Units: MEQ/L; Status: F Test: ANION GAP; Value: 14; Range: 8-16; Units: MEQ/L; Status: F Test: CALCIUM LEVEL; Value: 9.4; Range: 8.8-10.2; Units: MG/DL; Status: F Test Note: ; Units are mL/min/1.73 m2 Chronic Kidney Disease Staging per NKF: Stage I & II GFR >=60 Normal to Mildly Decreased Stage III GFR 30-59 Moderately Decreased Stage IV GFR 15-29 Severely Decreased Stage V GFR <15 Very Little GFR Left ESRD GFR <15 on CAREER COORDINATOR Lab Order: CBC with Diff; SPEC'M 10/25/16 02:01 Test: WHITE BLOOD COUNT; Value: 9.2; Range: 4.0-10.0; Units: K/mm3; Status: F Test: RED BLOOD COUNT; Value: 4.71; Range: 4.30-6.10; Units: M/mm3; Status: F Test: HEMOGLOBIN; Value: 13.3; Range: 14.0-18.0; Abnormal: Below low normal; Units: g/dl; Status: F Test: HEMATOCRIT; Value: 43.0; Range: 42.0-52.0; Units: %; Status: F Test: MEAN CORPUSCULAR VOLUME; Value: 91.5; Range: 80.0-96.0; Units: fl; Status: F Test: MEAN CORPUSCULAR HEMOGLOBIN; Value: 28.3; Range: 27.0-33.0; Units: pg; Status: F Test: MEAN CORPUSCULAR HGB CONC; Value: 30.9; Range: 32.0-36.5; Abnormal: Below low normal; Units: g/dl; Status: F Test: RED CELL DISTRIBUTION WIDTH; Value: 15.7; Range: 11.5-14.5; Abnormal: Above high normal; Units: %; Status: F Test: PLATELET COUNT, AUTOMATED; Value: 130; Range: 150-450; Abnormal: Below low normal; Units: k/mm3; Status: F Test: NEUTROPHILS %; Value: 92.2; Range: 36.0-66.0; Abnormal: Above high normal; Units: %; Status: F Test: LYMPH %; Value: 2.8; Range: 24.0-44.0; Abnormal: Below low normal; Units: %; Status: F Test: MONO %; Value: 4.0; Range: 0.0-5.0; Units: %; Status: F Test: EOS %; Value: 0.0; Range: 0.0-3.0; Units: %; Status: F Test: BASO %; Value: 0.2; Range: 0.0-1.0; Units: %; Status: F Test: LARGE UNSTAINED CELL %; Value: 0.7; Range: 0.0-4.0; Units: %; Status: F Test: NEUTROPHILS #; Value: 8.4; Range: 1.8-7.7; Abnormal: Above high normal; Units: K/mm3; Status: F Test: LYMPH #; Value: 0.3; Range: 1.5-4.5; Abnormal: Below low normal; Units: K/mm3; Status: F Test: MONO #; Value: 0.4; Range: 0.0-0.8; Units: K/mm3; Status: F Test: EOS #; Value: 0.0; Range: 0.0-0.50; Units: K/mm3; Status: F Test: BASO #; Value: 0.0; Range: 0.0-0.2; Units: K/mm3; Status: F Test: LARGE UNSTAINED CELL #; Value: 0.1; Range: 0.0-0.4; Units: K/mm3; Status: F Lab Order: Cardiac Injury Profile; SPEC'M 10/25/16 02:01 Test: CPK CREATINE PHOSPHOKINASE; Value: 140; Range: 39-308; Units: U/L; Status: F Test: CK-MB VALUE MASS; Value: 1.0; Range: 0.0-3.6; Units: NG/ML; Status: F Test: MB/CK RELATIVE INDEX; Value: 0.71; Range: < OR =4; Status: F Test Note: ; DIAGNOSIS CRITERIA MMB ng/ml Relative Index (RI) NON-AMI < or = 5 N/A ALDANA ZONE > 5 < or = 4 AMI > 5 > 4 Lab Order: Partial Thromboplastin Time; SPEC'M 10/25/16 02:01 Test: PARTIAL THROMBOPLASTIN TIME; Value: 31.2; Range: 26.6-37.1; Units: SECONDS; Status: F Lab Order: Prothrombin Time Profile\E\INR; SPEC'M 10/25/16 02:01 Test: PROTHROMBIN TIME; Value: 17.8; Range: 12.3-14.5; Abnormal: Above high normal; Units: SECONDS; Status: F Test: INR; Value: 1.46; Status: F Test Note: ; THERAPUTIC HUMAN INR VALUES INDICATIONS NORMAL RANGES PROPHYLAXIS/TREATMENT OF: VENOUS THROMBOSIS 2.0-3.0 PULMONARY EMBOLISM 2.0-3.0 PREVENTION OF SYSTEMIC EMBOLISM FROM: TISSUE HEART VALVES 2.0-3.0 ACUTE MYOCARDIAL INFARCTION 2.0-3.0 VALVULAR HEART DISEASE 2.0-3.0 ATRIAL FIBRILLATION 2.0-3.0 MECHANICAL VALVES(HIGH RISK) 2.5-3.5 RECURRENT MYOCARDIAL INFARCTION 2.5-3.5 Lab Order: Troponin; SPEC'M 10/25/16 02:01 Test: TROPONIN I; Value: < 0.02; Range: < 0.10; Units: NG/ML; Status: F Test Note: ; Troponin I Reference Interval for [employer] LOCI: 99th Percentile= 0.00-0.045 ng/ml Risk Stratification: <= 0.10 ng/ml Decreased Risk for Adverse Clinical Events. 0.10-1.50 ng/ml Increased Risk for Adverse Clinical Events. Evaluation of additional criterion and/or repeat testing in 2-6 hours is suggested to rule out myocardial damage. >= 1.50 ng/ml Indicative of Myocardial Injury. Lab Order: URINALYSIS; SPEC'M 10/25/16 02:57 Test: APPEARANCE, URINE; Value: CLOUDY; Range: CLEAR; Abnormal: Above high normal; Status: F Test: COLOR, URINE; Value: YELLOW; Range: YELLOW; Status: F Test: PH,URINE; Value: 5.0; Range: 5.0-9.0; Units: UNITS; Status: F Test: SPECIFIC GRAVITY URINE AUTO; Value: 1.021; Range: 1.002-1.035; Status: F Test: PROTEIN, URINE AUTO; Value: 2+; Range: NEGATIVE; Abnormal: Above high normal; Units: mg/dL; Status: F Test: GLUCOSE, URINE (UA) AUTO; Value: 3+; Range: NEGATIVE; Abnormal: Above high normal; Units: mg/dL; Status: F Test: KETONE, URINE AUTO; Value: NEGATIVE; Range: NEGATIVE; Units: mg/dL; Status: F Test: UROBILINOGEN, URINE AUTO; Value: 0.2; Range: 0.0-2.0; Units: mg/dL; Status: F Test: BILIRUBIN, URINE AUTO; Value: NEGATIVE; Range: NEGATIVE; Status: F Test: NITRITE, URINE AUTO; Value: NEGATIVE; Range: NEGATIVE; Status: F Test: LEUKOCYTE ESTERASE, URINE AUTO; Value: 3+; Range: NEGATIVE; Abnormal: Above high normal; Status: F Test: BLOOD, URINE BLOOD; Value: 3+; Range: NEGATIVE; Abnormal: Above high normal; Status: F Test: WBC, URINE AUTO; Value: TNTC; Range: 0-3; Abnormal: Above high normal; Units: /HPF; Status: F Test: RBC, URINE AUTO; Value: TNTC; Range: 0-3; Abnormal: Above high normal; Units: /HPF; Status: F Test: BACTERIA, URINE AUTO; Value: NEGATIVE; Range: NEGATIVE; Status: F Test: YEAST LIKE CELL URINE AUTO; Value: LARGE; Range: NONE; Abnormal: Above high normal; Status: F Test: SQUAMOUS EPITHELIAL CELL UR AU; Value: 0; Range: 0-6; Units: /HPF; Status: F Test: MUCUS, URINE; Value: SMALL; Range: NEGATIVE; Status: F Test: HYALINE CAST, URINE AUTO; Value: 0; Range: 0-1; Units: /LPF; Status: F Lab Order: URINALYSIS; SPEC'M 10/25/16 02:57 Test: APPEARANCE, URINE; Value: TURBID; Range: CLEAR; Abnormal: Above high normal; Status: F Test: COLOR, URINE; Value: YELLOW; Range: YELLOW; Status: F Test: PH,URINE; Value: 5.0; Range: 5.0-9.0; Units: UNITS; Status: F Test: SPECIFIC GRAVITY URINE AUTO; Value: 1.018; Range: 1.002-1.035; Status: F Test: PROTEIN, URINE AUTO; Value: 2+; Range: NEGATIVE; Abnormal: Above high normal; Units: mg/dL; Status: F Test: GLUCOSE, URINE (UA) AUTO; Value: 3+; Range: NEGATIVE; Abnormal: Above high normal; Units: mg/dL; Status: F Test: KETONE, URINE AUTO; Value: NEGATIVE; Range: NEGATIVE; Units: mg/dL; Status: F Test: UROBILINOGEN, URINE AUTO; Value: 0.2; Range: 0.0-2.0; Units: mg/dL; Status: F Test: BILIRUBIN, URINE AUTO; Value: NEGATIVE; Range: NEGATIVE; Status: F Test: NITRITE, URINE AUTO; Value: NEGATIVE; Range: NEGATIVE; Status: F Test: LEUKOCYTE ESTERASE, URINE AUTO; Value: 3+; Range: NEGATIVE; Abnormal: Above high normal; Status: F Test: BLOOD, URINE BLOOD; Value: 3+; Range: NEGATIVE; Abnormal: Above high normal; Status: F Test: WBC, URINE AUTO; Value: TNTC; Range: 0-3; Abnormal: Above high normal; Units: /HPF; Status: F Test: RBC, URINE AUTO; Value: TNTC; Range: 0-3; Abnormal: Above high normal; Units: /HPF; Status: F Test: BACTERIA, URINE AUTO; Value: NEGATIVE; Range: NEGATIVE; Status: F Test: YEAST LIKE CELL URINE AUTO; Value: MODERATE; Range: NONE; Abnormal: Above high normal; Status: F Test: SQUAMOUS EPITHELIAL CELL UR AU; Value: 0; Range: 0-6; Units: /HPF; Status: F Test: MUCUS, URINE; Value: SMALL; Range: NEGATIVE; Status: F Test: HYALINE CAST, URINE AUTO; Value: 0; Range: 0-1; Units: /LPF; Status: F Lab Order: Venous Blood Gas (large pea green tube on ice); SPEC'M 10/25/16 03:53 Test: VENOUS PH; Value: 7.323; Range: 7.330-7.430; Abnormal: Below low normal; Units: UNITS; Status: F Test: VENOUS PARTIAL PRESSURE CO2; Value: 44.0; Range: 38.0-50.0; Units: mmHg; Status: F Test: VENOUS PARTIAL PRESSURE O2; Value: 37.6; Range: 30.0-50.0; Units: mmHg; Status: F Test: VENOUS TOTAL CO2; Value: 23.7; Range: 24.0-28.0; Abnormal: Below low normal; Units: MEQ/L; Status: F Test: VENOUS HCO3; Value: 22.3; Range: 23.0-27.0; Abnormal: Below low normal; Units: MEQ/L; Status: F Test: VENOUS BASE EXCESS; Value: -3.7; Range: -2.0-2.0; Abnormal: Below low normal; Status: F Test: VENOUS STANDARD HCO3; Value: 20.8; Units: MEQ/L; Status: F Test: VENOUS O2 SATURATION; Value: 68.4; Range: 60.0-80.0; Units: %; Status: F Lab Order: Osmolality, Serum; SPEC'M 10/25/16 02:01 Test: OSMOLALITY SERUM; Value: 347; Range: 280-301; Abnormal: Above high normal; Units: MOSM/KG; Status: F Lab Order: Liver Profile; SPEC'M 10/25/16 03:53 Test: AST/SGOT; Value: 13; Range: 15-37; Abnormal: Below low normal; Units: U/L; Status: F Test: ALT/SGPT; Value: 16; Range: 12-78; Units: U/L; Status: F Test: ALKALINE PHOSPHATASE; Value: 133; Range: 45-117; Abnormal: Above high normal; Units: U/L; Status: F Test: BILIRUBIN,TOTAL; Value: 0.5; Range: 0.2-1.0; Units: MG/DL; Status: F Test: BILIRUBIN,DIRECT; Value: 0.1; Range: 0.0-0.2; Units: MG/DL; Status: F Test: TOTAL PROTEIN; Value: 7.9; Range: 6.4-8.2; Units: GM/DL; Status: F Test: ALBUMIN; Value: 2.3; Range: 3.2-5.2; Abnormal: Below low normal; Units: GM/DL; Status: F Test: ALBUMIN/GLOBULIN RATIO; Value: 0.41; Range: 1.00-1.93; Abnormal: Below low normal; Status: F Radiology Order: CT ABD & PELVIS: No Contrast Test: CT ABD & PELVIS: No Contrast REASON FOR EXAMINATION: nephrostomy tube placement; ; CLINICAL HISTORY: Abdominal pain.; TECHNIQUE: Multiple axial, sagittal and coronal CT images were obtained through the abdomen and pelvi; s without administration of oral or IV contrast material.; COMMENTS:; Comparison is made to prior exam on 03/16/2016.; Bilateral basilar atelectatic pulmonary changes.; The liver is of uniform attenuation without mass or defect. There is no intra or extrahepatic biliary; ductal dilatation. The spleen is normal. The gallbladder is distended containing a gallstone. The pa; ncreas is of normal contour and attenuation characteristics. There is no evidence of adrenal mass.; No change in bilateral chronic renal atrophy. No change in the 5.2 mm obstructing calculous of the le; ft and at L4. No change in the mild bilateral hydroureteronephrosis. No change of bilateral nephrosto; my tubes.; There is no evidence for appendicitis. There is no bowel wall thickening. No evidence for small or la; rge bowel obstruction. There is no evidence of abdominal ascites or lymphadenopathy.; There is no evidence of intrinsic or extrinsic bladder mass. There is no pelvic ascites or lymphadeno; martha.; Images of the lung bases show no evidence of pleural or parenchymal mass. There are no pleural effusi; ons.; The bony structures are free of lytic or blastic lesions. Multilevel degenerative changes are seen in; volving the thoracolumbar spine.; Scattered calcifications are seen involving the aorta and major branches compatible with atherosclero; sis.; IMPRESSION:; No acute traumatic pathology is seen.; Cholelithiasis.; Bilateral hydroureteronephrosis.; Bilateral nephrostomy tubes.; No change in left hepatic obstructing calculus.; Thank you for your kind referral of this patient.; ; Radiology Order: CT Spine, Lumbar W/o Contrast Test: CT Spine, Lumbar W/o Contrast REASON FOR EXAMINATION: Trauma; ; HISTORY: Trauma; COMPARISON: None; TECHNIQUE: Multiple thin-section contiguous helically-acquired axially-displayed computed tomographic; images of the lumbar spine are obtained from T12 through S1, with images reviewed at soft tissue and; bone window. 2D Sagittal and coronal reformatted images are performed.; FINDINGS:; No acute fracture, suspicious lesion, or spondylolisthesis. There is mild dextroscoliosis with multil; evel severe degenerative changes with endplate sclerosis, disc space narrowing with vacuum phenomena,; anterior large bridging osteophytes, multilevel posterior small spurring and disc bulges. Spinal can; al appears grossly patent. Multilevel severe facet arthropathy also noted.; No paraspinal masses or collections. IVC filter. Bilateral renal atrophy with right nephrostomy tube.; ; IMPRESSION:; No acute fracture. Multilevel severe degenerative changes as described. If there are persistent sympt; oms, MRI lumbar spine is recommended to assess for protruding disc pathology or more sensitive evalua; tion for acute fracture.; Thank you for your kind referral of this patient.; ; Outcome: 04:58 Decision to Hospitalize by Provider. mm11 05:23 Discharge Assessment: Patient awake, alert and oriented x 3. No cognitive and/or af2 functional deficits noted. Patient verbalized understanding of disposition instructions. patient administered narcotics - no. The following High Risk Discharge criteria are identified: None. Admitted to ICU accompanied by nurse, accompanied by tech, via stretcher, on monitor, with chart. Condition: stable. CT Study completed. Property :Personal belongings accompany Pt. 06:10 Patient left the ED. af2 Signatures: Dispatcher [employer] EDMS Marli Garcia, Reg Reg Uriel Villa, DO DO mm11 Veda Longoria LPN LPN cp1 Shameka Wilson, RN RN sls1 Coni Wills cmGerhard Bettencourt jp4 Altagracia Varma, Size Marker Unit Jen Bravo Amber,RN RN af2 Hamida Crooks ys2 Veda Longoria LPN cp1 Chart Complete MTDD
[2016-10-27] MEDS: HumaLOG INSULIN (NovoLOG) PER UNIT SC SCH ×4 (07:23→21:34)
[2016-10-27] MEDS: ASPIRIN 81 MG ENTERIC TAB PO SCH (08:13)
[2016-10-27] MEDS: FINASTERIDE 5 MG TAB PO SCH (08:13)
[2016-10-27] MEDS: ATENOLOL 12.5MG PER 1/2 TABLET PO SCH ×2 (08:14→21:33)
[2016-10-27] MEDS: VITAMIN D 1,000 INTERNATIONAL UNITS TABLET PO SCH (08:14)
[2016-10-27] MEDS: ATORVASTATIN 20 MG TAB PO SCH (08:14)
[2016-10-27] MEDS: PREGABALIN 50 MG CAP (LYRICA) PO SCH ×2 (08:15→21:32)
[2016-10-27] MEDS: DORZOLAMIDE 2% OPHTH SOLN 10 ML BTL OU SCH ×2 (08:15→21:34)
[2016-10-27] MEDS: NORCO, ANEXSIA 5/325MG TABLET (HYDROcodone/ACETAMINOPHEN) PO PRN ×2 (08:15→18:03)
[2016-10-27] MEDS: VANCOMYCIN HCL 750 MG, VIAL MATE ADAPTER 1 EACH in D5W 250 ML IV SCH (09:20)
--- NOTE | 2016-10-27 11:28 | IPNPDOC ---
Assessment/Plan Date Seen The patient was seen on 10/27/16. 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 Normally managed by Glucotrol at home, but was not taking this fro several days at home. JFW: change insulin drip to ICU protocol, except no D5 for BS<200 10/27/16 - Now on SSRI - Previously on Glucotrol at home. Restart this at lower than HD due to decreased renal function. May need to switch to long acting insulin (2) Acute hwj-PZ-ogakkzy elevation myocardial infarction Status: Acute Problem Text: JFW: troponin bumper to 0.45. Already on statin and bblocker, on warfarin. Will consult ronit TURNER d/w Dr Burris 11/01 - Trop back to baseline. Medical intervention only per patient request. Cardiology recommendations read and appreciated. Corg switched to Atenolol. Otherwise continue current regimen. (3) Acute kidney injury Status: Acute Problem Text: Continue IVF Has CKD - Baseline creatinine around 1.9 11/01/15 - Renal function about at baseline (4) History of pulmonary embolism Status: Chronic Response to Treatment: Stable Problem Text: On Chronic Coumadin Subtherapeutic on admission, but was not taking meds. 11/01 - Coumadin dose increased due to subtherapeutic level. INR trending toward goal - monitor and adjust dose accordingly (5) BPH (benign prostatic hyperplasia) Status: Chronic Response to Treatment: Stable Problem Text: On Proscar (6) Hypothyroid Status: Chronic Response to Treatment: Stable Problem Specific Plan: Monitor Clinically Problem Text: Levothyroxine (7) Parkinson disease Status: Chronic Response to Treatment: Stable (8) Sacral decubitus ulcer, stage III Status: Chronic Problem Text: Get wound consult Plan / VTE VTE Prophylaxis Ordered?: Yes (Coumadin) Plan Therapy: PT, OT Disposition Lives with . Needs TP - May need Subacute Rehab Subjective Review of Systems CC/HPI The patient is a 85-year-old male admitted with a reason for visit of Acute Kidney Injury, Uncontrolled Type 2 Dm. Events since last encounter Patient c/o pain in his legs. Nurse reports that he wants to sit on his sacrum at all times because this is most comfortable and he has paion when laying on his side in an effort to keep weight off his sacral decubiti Constitutional: Denies: Chills, Fever Pulmonary: Denies: Cough, Dyspnea Cardiovascular: Denies: Chest Pain, Palpitations Gastrointestinal: Denies: Abdominal Pain, Diarrhea, Nausea, Vomiting Objective Physical Examination General Exam: Positive: No Acute Distress, Other (Alert, Laying on his side c/ o leg pain) Chest Exam: Positive: Normal air movement, Negative: Clear to auscultation Heart Exam: Positive: Rate Normal, Negative: Murmurs Abdomen Exam: Positive: Soft, Negative: Tenderness Male Exam: Negative: Edema Vital Signs/I&O Vital Signs Date Time Temp Pulse Resp B/P Pulse Ox O2 Delivery O2 Flow Rate FiO2 10/27/16 08:45 20 93 Nasal Cannula 2.0 10/27/16 08:14 95 137/69 10/27/16 04:00 98.5 I&O- Last 24 Hours up to 6 AM 10/27/16 06:00 Intake Total 2241 ml Output Total 2045 ml Balance 196 ml Laboratory Data Labs 24H Laboratory Tests 2 10/26/16 11:24: Bedside Glucose (Misc Panel) 303H 10/26/16 16:31: Bedside Glucose (Misc Panel) 229H 10/26/16 17:50: Albumin 1.8L, Blood Urea Nitrogen 69H, Creatinine 1.73H, Sodium Level 148H, Potassium Level 4.7, Chloride Level 117H, Carbon Dioxide Level 23, Anion Gap 8, Calcium Level 8.6L, Glomerular Filtration Rate 40.3, Phosphorus Level 2.1L 10/26/16 20:55: Bedside Glucose (Misc Panel) 259H 10/27/16 04:54: Prothromb Time International Ratio 1.80, Prothrombin Time 21.0H 10/27/16 05:43: Albumin 1.9L, Blood Urea Nitrogen 66H, Creatinine 1.72H, Sodium Level 148H, Potassium Level 4.8, Chloride Level 118H, Carbon Dioxide Level 22, Anion Gap 8, Calcium Level 8.2L, Glomerular Filtration Rate 40.5, Phosphorus Level 2.5 CBC/BMP Laboratory Tests 10/26/16 17:50 Anion Gap 8 10/27/16 04:54 Red Blood Count 4.42, Mean Corpuscular Volume 89.6, Mean Corpuscular Hemoglobin 28.4, Mean Corpuscular Hemoglobin Concent 31.7 L, Red Cell Distribution Width 16.1 H 10/27/16 05:43 Anion Gap 8 FSBS Laboratory Tests Test 10/26/16 11:24 10/26/16 16:31 10/26/16 20:55 Range/Units Bedside Glucose (Misc Panel) 303 229 259 83-110 MG/DL Microbiology Microbiology 10/25/16 Blood Culture - Final, Complete Enterococcus Faecalis 10/25/16 Blood Culture - Final, Complete Enterococcus Faecalis 10/25/16 MRSA Screen - Final, Complete 10/25/16 Urine Culture - Preliminary, Resulted Yeast Like Organism 10/25/16 Urine Culture - Final, Complete Enterococcus Faecalis Yeast Like Organism MERRY ARBOLEDA PA-C Oct 27, 2016 11:28
[2016-10-27] MEDS: glipiZIDE *2.5MG* 1/2 TABLET PO SCH (12:05)
[2016-10-27] MEDS: AMPICILLIN SOD/SULBACTAM SOD 1.5 GM in D5W MINI-BAG PLUS 50 ML IV SCH ×2 (16:15→21:34)
[2016-10-27] MEDS: WARFARIN SOD 3 MG TAB PO SCH (17:27)
[2016-10-28] MEDS: KCL 20MEQ IN 0.45NS 1000ML 1,000 ML IV SCH (00:16)
[2016-10-28] MEDS: NORCO, ANEXSIA 5/325MG TABLET (HYDROcodone/ACETAMINOPHEN) PO PRN ×3 (01:02→19:08)
[2016-10-28] MEDS: AMPICILLIN SOD/SULBACTAM SOD 1.5 GM in D5W MINI-BAG PLUS 50 ML IV SCH ×4 (04:12→21:25)
[2016-10-28 06:00] VITALS: BP 163/82
[2016-10-28] MEDS: LEVOTHYROXINE 0.075 MG TAB (75 MCG) PO SCH (06:10)
[2016-10-28 06:16] LABS: MEAN CORPUSCULAR HEMOGLOBIN 27.9 pg (27.0-33.0); MEAN CORPUSCULAR VOLUME 87.3 fl (80.0-96.0); RED CELL DISTRIBUTION WIDTH 17.3 % (11.5-14.5); WHITE BLOOD COUNT 9.1 K/mm3 (4.0-10.0)
[2016-10-28 06:21] LABS: INR 2.48
[2016-10-28 06:28] LABS: ALBUMIN 1.8 GM/DL (3.2-5.2); CALCIUM LEVEL 8.1 MG/DL (8.8-10.2); CREATININE FOR GFR 1.71 MG/DL (0.70-1.30); GLOMERULAR FILTRATION RATE 40.8 (>35); PHOSPHORUS LEVEL 2.5 MG/DL (2.5-4.9); POTASSIUM SERUM 4.7 MEQ/L (3.5-5.1)
[2016-10-28] MEDS: ASPIRIN 81 MG ENTERIC TAB PO SCH (08:01)
[2016-10-28] MEDS: glipiZIDE *2.5MG* 1/2 TABLET PO SCH (08:01)
[2016-10-28] MEDS: ATORVASTATIN 20 MG TAB PO SCH (08:01)
[2016-10-28] MEDS: VITAMIN D 1,000 INTERNATIONAL UNITS TABLET PO SCH (08:01)
[2016-10-28] MEDS: PREGABALIN 50 MG CAP (LYRICA) PO SCH ×2 (08:01→20:37)
[2016-10-28] MEDS: FINASTERIDE 5 MG TAB PO SCH (08:01)
[2016-10-28] MEDS: ATENOLOL 12.5MG PER 1/2 TABLET PO SCH ×2 (08:02→20:37)
[2016-10-28] MEDS: HumaLOG INSULIN (NovoLOG) PER UNIT SC SCH ×4 (08:03→20:27)
[2016-10-28] MEDS: DORZOLAMIDE 2% OPHTH SOLN 10 ML BTL OU SCH ×2 (08:03→20:38)
--- NOTE | 2016-10-28 10:32 | IPNPDOC ---
Assessment/Plan Date Seen The patient was seen on 10/28/16. Problems Problems: (1) Sepsis secondary to UTI Status: Acute Response to Treatment: Improving Problem Text: U/C and B/C x 2 + for Enterococcus Faecalis Admitted with Tachycardia, ANKUR, Low grade fever Now on Ampicillin D#2 - Clinically improving (2) Uncontrolled type 2 DM with hyperosmolar nonketotic hyperglycemia Status: Acute Response to Treatment: Improving Problem Text: Insulin drip ordered. Normally managed by Glucotrol at home, but was not taking this fro several days at home. JFW: change insulin drip to ICU protocol, except no D5 for BS<200 10/27/16 - Now on SSRI - Previously on Glucotrol at home. Restart this at lower than HD due to decreased renal function. May need to switch to long acting insulin 10/28/16 - Blood sugars remain high. Increase Glucotrol. Continue SSI - May need long acting insulin (3) Acute dvn-VT-uevegto elevation myocardial infarction Status: Acute Problem Text: JFW: troponin bumper to 0.45. Already on statin and bblocker, on warfarin. Will consult ronit TURNER d/w Dr Burris 10/27- Trop back to baseline. Medical intervention only per patient request. Cardiology recommendations read and appreciated. Coreg switched to Atenolol. Otherwise continue current regimen. 10/28 - Stable (4) Acute kidney injury Status: Resolved Problem Text: Continue IVF Has CKD - Baseline creatinine around 1.9 10/27/15 - Renal function about at baseline 10/28/15 - RF remains stable (5) History of pulmonary embolism Status: Chronic Response to Treatment: Stable Problem Text: On Chronic Coumadin Subtherapeutic on admission, but was not taking meds. 10/27 - Coumadin dose increased due to subtherapeutic level. INR trending toward goal - monitor and adjust dose accordingly 10/28 - Coumadin at goal. Cut back to usual HD of 2 mg daily (6) BPH (benign prostatic hyperplasia) Status: Chronic Response to Treatment: Stable Problem Text: On Proscar (7) Hypothyroid Status: Chronic Response to Treatment: Stable Problem Specific Plan: Monitor Clinically Problem Text: Levothyroxine (8) Parkinson disease Status: Chronic Response to Treatment: Stable (9) Sacral decubitus ulcer, stage III Status: Chronic Problem Text: Get wound consult Plan / VTE VTE Prophylaxis Ordered?: Yes (Coumadin) Plan Therapy: PT, OT Disposition Lives with . May need ST rehab. Subjective Review of Systems CC/HPI The patient is a 85-year-old male admitted with a reason for visit of Acute Kidney Injury, Uncontrolled Type 2 Dm. Events since last encounter Feels a little better overall, but still weak. Constitutional: Denies: Chills, Fever Pulmonary: Denies: Cough, Dyspnea Cardiovascular: Denies: Chest Pain, Palpitations Gastrointestinal: Denies: Abdominal Pain, Constipation, Diarrhea, Nausea, Vomiting Objective Physical Examination General Exam: Positive: Alert (Much brighter and more alert today. Looks more comfortable), No Acute Distress Chest Exam: Positive: Normal air movement, Negative: Clear to auscultation Heart Exam: Positive: Rate Normal, Negative: Murmurs Abdomen Exam: Positive: Soft, Negative: Tenderness Male Exam: Negative: Edema Extremity Exam: Negative: Edema Vital Signs/I&O Vital Signs Date Time Temp Pulse Resp B/P Pulse Ox O2 Delivery O2 Flow Rate FiO2 10/28/16 08:02 89 163/76 10/28/16 08:01 18 10/28/16 06:00 98.6 92 Room Air 10/27/16 08:45 2.0 I&O- Last 24 Hours up to 6 AM 10/28/16 06:00 Intake Total 2345 ml Output Total 1285 ml Balance 1060 ml Laboratory Data Labs 24H Laboratory Tests 2 10/27/16 11:58: Bedside Glucose (Misc Panel) 336H 10/27/16 16:53: Bedside Glucose (Misc Panel) 300H 10/28/16 05:45: Albumin 1.8L, Blood Urea Nitrogen 62H, Creatinine 1.71H, Sodium Level 146H, Potassium Level 4.7, Chloride Level 115H, Carbon Dioxide Level 24, Anion Gap 7L , Calcium Level 8.1L, Glomerular Filtration Rate 40.8, Phosphorus Level 2.5, Prothromb Time International Ratio 2.48, Prothrombin Time 26.9H CBC/BMP Laboratory Tests 10/28/16 05:45 Anion Gap 7 L, Red Blood Count 4.23 L, Mean Corpuscular Volume 87.3, Mean Corpuscular Hemoglobin 27.9, Mean Corpuscular Hemoglobin Concent 32.0, Red Cell Distribution Width 17.3 H FSBS Laboratory Tests Test 10/27/16 11:58 10/27/16 16:53 Range/Units Bedside Glucose (Misc Panel) 336 300 83-110 MG/DL Microbiology Microbiology 10/25/16 Blood Culture - Final, Complete Enterococcus Faecalis 10/25/16 Blood Culture - Final, Complete Enterococcus Faecalis 10/27/16 MRSA Screen, Received Pending 10/25/16 MRSA Screen - Final, Complete 10/25/16 Urine Culture - Preliminary, Resulted Serratia Marcescens Enterococcus Faecalis Yeast Like Organism 10/25/16 Urine Culture - Final, Complete Enterococcus Faecalis Yeast Like Organism MERRY ARBOLEDA PA-C Oct 28, 2016 10:32
[2016-10-28 14:00] VITALS: BP 153/72
[2016-10-28] MEDS ORDERED: WARFARIN SOD 2 MG TAB PO SCH (17:00)
[2016-10-28 22:00] VITALS: BP 140/81
[2016-10-29] MEDS: NORCO, ANEXSIA 5/325MG TABLET (HYDROcodone/ACETAMINOPHEN) PO PRN ×2 (02:25→12:39)
[2016-10-29] MEDS: AMPICILLIN SOD/SULBACTAM SOD 1.5 GM in D5W MINI-BAG PLUS 50 ML IV SCH ×4 (03:41→21:43)
[2016-10-29] MEDS: LEVOTHYROXINE 0.075 MG TAB (75 MCG) PO SCH (05:38)
[2016-10-29 06:25] LABS: MEAN CORPUSCULAR HEMOGLOBIN 27.8 pg (27.0-33.0); MEAN CORPUSCULAR HGB CONC 31.2 g/dl (32.0-36.5); RED CELL DISTRIBUTION WIDTH 15.9 % (11.5-14.5)
[2016-10-29 06:41] LABS: INR 3.32
[2016-10-29 06:55] LABS: ALBUMIN 1.9 GM/DL (3.2-5.2); CALCIUM LEVEL 8.5 MG/DL (8.8-10.2); CREATININE FOR GFR 1.72 MG/DL (0.70-1.30); GLOMERULAR FILTRATION RATE 40.5 (>35); PHOSPHORUS LEVEL 3.1 MG/DL (2.5-4.9)
[2016-10-29 06:58] LABS: POTASSIUM SERUM 5.3 MEQ/L (3.5-5.1)
[2016-10-29] MEDS: HumaLOG INSULIN (NovoLOG) PER UNIT SC SCH ×5 (08:48→21:00)
[2016-10-29] MEDS: glipiZIDE (GLUCOTROL) 5 MG TAB PO SCH (08:48)
[2016-10-29 09:00] VITALS: BP 135/80
[2016-10-29] MEDS: ATENOLOL 12.5MG PER 1/2 TABLET PO SCH ×2 (10:50→21:44)
[2016-10-29] MEDS: FINASTERIDE 5 MG TAB PO SCH (10:50)
[2016-10-29] MEDS: ASPIRIN 81 MG ENTERIC TAB PO SCH (10:50)
[2016-10-29] MEDS: VITAMIN D 1,000 INTERNATIONAL UNITS TABLET PO SCH (10:51)
[2016-10-29] MEDS: ATORVASTATIN 20 MG TAB PO SCH (10:51)
[2016-10-29] MEDS: PREGABALIN 50 MG CAP (LYRICA) PO SCH ×2 (10:51→21:44)
[2016-10-29] MEDS: DORZOLAMIDE 2% OPHTH SOLN 10 ML BTL OU SCH ×2 (10:51→21:43)
[2016-10-29 14:00] VITALS: BP 136/66
--- NOTE | 2016-10-29 14:44 | IPNPDOC ---
Assessment/Plan Date Seen The patient was seen on 10/29/16. 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 Normally managed by Glucotrol at home, but was not taking this fro several days at home. JFW: change insulin drip to ICU protocol, except no D5 for BS<200 10/27/16 - Now on SSRI - Previously on Glucotrol at home. Restart this at lower than HD due to decreased renal function. May need to switch to long acting insulin 10/28/16 - Blood sugars remain high. Increase Glucotrol. Continue SSI - May need long acting insulin 10/29 - Blood sugars improving. Higher dose Glucotrol started this am - Monitor trend (3) Acute ujj-RS-icaxvls elevation myocardial infarction Status: Acute Problem Text: JFW: troponin bumper to 0.45. Already on statin and bblocker, on warfarin. Will consult ronit TURNER d/w Dr Burris 10/27- Trop back to baseline. Medical intervention only per patient request. Cardiology recommendations read and appreciated. Coreg switched to Atenolol. Otherwise continue current regimen. 10/28 - Stable (4) Acute kidney injury Status: Resolved Problem Text: Continue IVF Has CKD - Baseline creatinine around 1.9 10/27/15 - Renal function about at baseline 10/28/15 - RF remains stable 10/29 - Creatinine at baseline. Na+ remains high. Restart slow rate IVF. Encourage po fluids (5) History of pulmonary embolism Status: Chronic Response to Treatment: Stable Problem Text: On Chronic Coumadin Subtherapeutic on admission, but was not taking meds. 10/27 - Coumadin dose increased due to subtherapeutic level. INR trending toward goal - monitor and adjust dose accordingly 10/28 - Coumadin at goal. Cut back to usual HD of 2 mg daily 10/29 - Coumadin supratherapeutic. Hold COumadin today (6) BPH (benign prostatic hyperplasia) Status: Chronic Response to Treatment: Stable Problem Text: On Proscar (7) Hypothyroid Status: Chronic Response to Treatment: Stable Problem Specific Plan: Monitor Clinically Problem Text: Levothyroxine (8) Parkinson disease Status: Chronic Response to Treatment: Stable (9) Sacral decubitus ulcer, stage III Status: Chronic Problem Text: Get wound consult Plan / VTE VTE Prophylaxis Ordered?: Yes (Coumadin) Plan Therapy: PT, OT Subjective Review of Systems CC/HPI The patient is a 85-year-old male admitted with a reason for visit of Acute Kidney Injury, Uncontrolled Type 2 Dm. Events since last encounter Feels generally weak. Still with leg and back pain at times. Constitutional: Denies: Chills, Fever Pulmonary: Denies: Cough, Dyspnea Cardiovascular: Denies: Chest Pain, Palpitations Gastrointestinal: Denies: Abdominal Pain, Constipation, Diarrhea, Nausea, Vomiting Objective Physical Examination General Exam: Positive: Alert (Much brighter and more alert today. Looks more comfortable), No Acute Distress Chest Exam: Positive: Normal air movement, Negative: Clear to auscultation Heart Exam: Positive: Rate Normal, Negative: Murmurs Abdomen Exam: Positive: Soft, Negative: Tenderness Male Exam: Negative: Edema Extremity Exam: Negative: Edema Vital Signs/I&O Vital Signs Date Time Temp Pulse Resp B/P Pulse Ox O2 Delivery O2 Flow Rate FiO2 10/29/16 14:00 99.1 90 16 136/66 92 Room Air 10/27/16 08:45 2.0 I&O- Last 24 Hours up to 6 AM 10/29/16 06:00 Intake Total 1230 ml Output Total 1875 ml Balance -645 ml Laboratory Data Labs 24H Laboratory Tests 2 10/28/16 16:53: Bedside Glucose (Misc Panel) 197H 10/28/16 20:03: Bedside Glucose (Misc Panel) 224H 10/29/16 05:46: Albumin 1.9L, Blood Urea Nitrogen 57H, Creatinine 1.72H, Sodium Level 148H, Potassium Level 5.3H, Chloride Level 115H, Carbon Dioxide Level 24, Anion Gap 9 , Calcium Level 8.5L, Glomerular Filtration Rate 40.5, Phosphorus Level 3.1#, Prothromb Time International Ratio 3.32, Prothrombin Time 33.7H 10/29/16 11:24: Bedside Glucose (Misc Panel) 240H CBC/BMP Laboratory Tests 10/29/16 05:46 Anion Gap 9, Red Blood Count 4.41, Mean Corpuscular Volume 89.0, Mean Corpuscular Hemoglobin 27.8, Mean Corpuscular Hemoglobin Concent 31.2 L, Red Cell Distribution Width 15.9 H FSBS Laboratory Tests Test 10/28/16 16:53 10/28/16 20:03 10/29/16 11:24 Range/Units Bedside Glucose (Misc Panel) 197 224 240 83-110 MG/DL Microbiology Microbiology 10/25/16 Blood Culture - Final, Complete Enterococcus Faecalis 10/25/16 Blood Culture - Final, Complete Enterococcus Faecalis 10/27/16 MRSA Screen - Final, Complete 10/25/16 MRSA Screen - Final, Complete 10/25/16 Urine Culture - Final, Complete Serratia Marcescens Enterococcus Faecalis Yeast Like Organism Streptococcus Gordonii 10/25/16 Urine Culture - Final, Complete Enterococcus Faecalis Yeast Like Organism MERRY ARBOLEDA PA-C Oct 29, 2016 14:44
[2016-10-29] MEDS: NS 0.45% 1,000 ML IV SCH (15:07)
[2016-10-29 22:00] VITALS: BP 162/80
[2016-10-30] MEDS: NS 0.45% 1,000 ML IV SCH (03:39)
[2016-10-30] MEDS: AMPICILLIN SOD/SULBACTAM SOD 1.5 GM in D5W MINI-BAG PLUS 50 ML IV SCH ×2 (03:39→10:28)
[2016-10-30] MEDS: NORCO, ANEXSIA 5/325MG TABLET (HYDROcodone/ACETAMINOPHEN) PO PRN (03:40)
[2016-10-30] MEDS: LEVOTHYROXINE 0.075 MG TAB (75 MCG) PO SCH (05:32)
[2016-10-30 06:00] VITALS: BP 119/56
[2016-10-30 06:04] LABS: MEAN CORPUSCULAR HEMOGLOBIN 28.1 pg (27.0-33.0); MEAN CORPUSCULAR HGB CONC 31.6 g/dl (32.0-36.5); MEAN CORPUSCULAR VOLUME 88.9 fl (80.0-96.0); RED CELL DISTRIBUTION WIDTH 15.9 % (11.5-14.5); WHITE BLOOD COUNT 11.3 K/mm3 (4.0-10.0)
[2016-10-30 06:06] LABS: INR 4.38
[2016-10-30 06:35] LABS: CALCIUM LEVEL 8.1 MG/DL (8.8-10.2); CREATININE FOR GFR 1.71 MG/DL (0.70-1.30); GLOMERULAR FILTRATION RATE 40.8 (>35); PHOSPHORUS LEVEL 3.2 MG/DL (2.5-4.9)
[2016-10-30 06:45] LABS: ALBUMIN 1.5 GM/DL (3.2-5.2); POTASSIUM SERUM 4.2 MEQ/L (3.5-5.1)
[2016-10-30] MEDS: ASPIRIN 81 MG ENTERIC TAB PO SCH (08:51)
[2016-10-30] MEDS: DORZOLAMIDE 2% OPHTH SOLN 10 ML BTL OU SCH ×2 (08:51→20:28)
[2016-10-30] MEDS: FINASTERIDE 5 MG TAB PO SCH (08:51)
[2016-10-30] MEDS: PREGABALIN 50 MG CAP (LYRICA) PO SCH ×2 (08:51→20:28)
[2016-10-30] MEDS: VITAMIN D 1,000 INTERNATIONAL UNITS TABLET PO SCH (08:51)
[2016-10-30] MEDS: glipiZIDE (GLUCOTROL) 5 MG TAB PO SCH (08:51)
[2016-10-30] MEDS: HumaLOG INSULIN (NovoLOG) PER UNIT SC SCH ×4 (08:51→21:00)
[2016-10-30] MEDS: ATENOLOL 12.5MG PER 1/2 TABLET PO SCH ×2 (08:52→20:28)
[2016-10-30] MEDS: ATORVASTATIN 20 MG TAB PO SCH (08:52)
--- NOTE | 2016-10-30 11:56 | IPNPDOC ---
Assessment/Plan Date Seen The patient was seen on 10/30/16. Problems Problems: (1) Sepsis secondary to UTI Status: Acute Response to Treatment: Improving Problem Text: U/C and B/C x 2 + for Enterococcus Faecalis Admitted with Tachycardia, ANKUR, Low grade fever Now on Ampicillin D#2 - Clinically improving 1/ - Amp D#3 1 - Was on Unasyn. 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 Normally managed by Glucotrol at home, but was not taking this fro several days at home. JFW: change insulin drip to ICU protocol, except no D5 for BS<200 10/27/16 - Now on SSRI - Previously on Glucotrol at home. Restart this at lower than HD due to decreased renal function. May need to switch to long acting insulin 10/28/16 - Blood sugars remain high. Increase Glucotrol. Continue SSI - May need long acting insulin 10/29 - Blood sugars improving. Higher dose Glucotrol started this am - Monitor trend 10/30 - Now on Glucotrol 5 mg daily and SSRI (Glucotrol is not ideal and sugars remain around 200, but patient has been resistant to insulin at home - Will determine need for insulin as outpatient) (3) Acute npv-[id number]-hhaybbn elevation myocardial infarction Status: Acute Problem Text: JFW: troponin bumper to 0.45. Already on statin and bblocker, on warfarin. Will consult ronit TURNER d/w Dr Burris 10/27- Trop back to baseline. Medical intervention only per patient request. Cardiology recommendations read and appreciated. Coreg switched to Atenolol. Otherwise continue current regimen. 10/28 - Stable (4) Acute kidney injury Status: Resolved Problem Text: Continue IVF Has CKD - Baseline creatinine around 1.9 10/27/15 - Renal function about at baseline 10/28/15 - RF remains stable 10/29 - Creatinine at baseline. Na+ remains high. Restart slow rate IVF. Encourage po fluids (5) History of pulmonary embolism Status: Chronic Response to Treatment: Stable Problem Text: On Chronic Coumadin Subtherapeutic on admission, but was not taking meds. 10/27 - Coumadin dose increased due to subtherapeutic level. INR trending toward goal - monitor and adjust dose accordingly 10/28 - Coumadin at goal. Cut back to usual HD of 2 mg daily 10/29 - Coumadin supratherapeutic. Hold COumadin today 10/30 - INR rising further. COntinue to hold Coumadin (6) BPH (benign prostatic hyperplasia) Status: Chronic Response to Treatment: Stable Problem Text: On Proscar (7) Hypothyroid Status: Chronic Response to Treatment: Stable Problem Specific Plan: Monitor Clinically Problem Text: Levothyroxine (8) Parkinson disease Status: Chronic Response to Treatment: Stable (9) Sacral decubitus ulcer, stage III Status: Chronic Problem Text: Get wound consult Plan / VTE VTE Prophylaxis Ordered?: Yes (Coumadin) Plan Therapy: PT, OT Disposition Will likely need ST rehab once medically stable. Subjective Review of Systems CC/HPI The patient is a 85-year-old male admitted with a reason for visit of Acute Kidney Injury, Uncontrolled Type 2 Dm. Events since last encounter No new issues Constitutional: Denies: Chills, Fever Pulmonary: Denies: Cough, Dyspnea Cardiovascular: Denies: Chest Pain, Orthopnea, Palpitations Gastrointestinal: Denies: Abdominal Pain, Constipation, Diarrhea, Nausea, Vomiting Objective Physical Examination General Exam: Positive: Alert (Alert, Oriented Appears comfortable), Cooperative, No Acute Distress Chest Exam: Positive: Normal air movement, Negative: Clear to auscultation Heart Exam: Positive: Rate Normal, Negative: Murmurs Abdomen Exam: Positive: Soft, Negative: Tenderness Male Exam: Negative: Edema Extremity Exam: Negative: Edema Vital Signs/I&O Vital Signs Date Time Temp Pulse Resp B/P Pulse Ox O2 Delivery O2 Flow Rate FiO2 10/30/16 08:52 87 163/75 10/30/16 06:00 97.0 20 92 Nasal Cannula 2.0 I&O- Last 24 Hours up to 6 AM 10/30/16 06:00 Intake Total 840 ml Output Total 1075 ml Balance -235 ml Laboratory Data Labs 24H Laboratory Tests 2 10/29/16 16:36: Bedside Glucose (Misc Panel) 216H 10/29/16 20:30: Bedside Glucose (Misc Panel) 182H 10/30/16 05:43: Albumin 1.5#L, Blood Urea Nitrogen 56H, Creatinine 1.71H, Sodium Level 147H, Potassium Level 4.2#, Chloride Level 114H, Carbon Dioxide Level 23, Anion Gap 10 , Calcium Level 8.1L, Glomerular Filtration Rate 40.8, Phosphorus Level 3.2, Prothromb Time International Ratio 4.38, Prothrombin Time 41.8H CBC/BMP Laboratory Tests 10/30/16 05:43 Anion Gap 10, Red Blood Count 3.81 L, Mean Corpuscular Volume 88.9, Mean Corpuscular Hemoglobin 28.1, Mean Corpuscular Hemoglobin Concent 31.6 L, Red Cell Distribution Width 15.9 H FSBS Laboratory Tests Test 10/29/16 16:36 10/29/16 20:30 Range/Units Bedside Glucose (Misc Panel) 216 182 83-110 MG/DL Microbiology Microbiology 10/25/16 Blood Culture - Final, Complete Enterococcus Faecalis 10/25/16 Blood Culture - Final, Complete Enterococcus Faecalis 10/27/16 MRSA Screen - Final, Complete 10/25/16 MRSA Screen - Final, Complete 10/25/16 Urine Culture - Final, Complete Serratia Marcescens Enterococcus Faecalis Yeast Like Organism Streptococcus Gordonii 10/25/16 Urine Culture - Final, Complete Enterococcus Faecalis Yeast Like Organism MERRY ARBOLEDA PA-C Oct 30, 2016 11:56
[2016-10-30 14:00] VITALS: BP 120/50
[2016-10-30] MEDS: AMPICILLIN SOD 1 GM in D5W MINI-BAG PLUS 50 ML IV SCH ×2 (16:57→21:53)
[2016-10-30] MEDS: COMBIGAN OPHTH (PATIENT'S OWN MED) OU SCH (20:30)
[2016-10-30 22:00] VITALS: BP 140/80
[2016-10-31] MEDS: AMPICILLIN SOD 1 GM in D5W MINI-BAG PLUS 50 ML IV SCH ×2 (03:20→09:43)
[2016-10-31] MEDS: LEVOTHYROXINE 0.075 MG TAB (75 MCG) PO SCH (05:43)
[2016-10-31 06:00] VITALS: BP 131/62
[2016-10-31 06:13] LABS: MEAN CORPUSCULAR HEMOGLOBIN 27.6 pg (27.0-33.0); MEAN CORPUSCULAR HGB CONC 31.5 g/dl (32.0-36.5); MEAN CORPUSCULAR VOLUME 87.5 fl (80.0-96.0); RED CELL DISTRIBUTION WIDTH 15.8 % (11.5-14.5); WHITE BLOOD COUNT 10.3 K/mm3 (4.0-10.0)
[2016-10-31 06:16] LABS: INR 4.96
[2016-10-31 06:28] LABS: ALBUMIN 1.6 GM/DL (3.2-5.2); CALCIUM LEVEL 8.2 MG/DL (8.8-10.2); CREATININE FOR GFR 1.79 MG/DL (0.70-1.30); GLOMERULAR FILTRATION RATE 38.7 (>35); PHOSPHORUS LEVEL 2.9 MG/DL (2.5-4.9)
[2016-10-31] MEDS ORDERED: ACETAMINOPHEN 500 MG TAB PO PRN (07:15)
--- NOTE | 2016-10-31 07:23 | IPNPDOC ---
Assessment/Plan Date Seen The patient was seen on 10/31/16. Problems Problems: (1) Sepsis secondary to UTI Status: Acute Response to Treatment: Improving Problem Text: U/C and B/C x 2 + for Enterococcus Faecalis Admitted with Tachycardia, ANKUR, Low grade fever Now on Ampicillin D#2 - Clinically improving 10/29 - Amp D#3 10/30 - Was on Unasyn. Switch to AMpicillin (Day#4 abx) 10/31/2016: WBC stable. Poor mobility and c/o feeling overall unwell. Continue Ampicillin. 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 Normally managed by Glucotrol at home, but was not taking this fro several days at home. JFW: change insulin drip to ICU protocol, except no D5 for BS<200 10/27/16 - Now on SSRI - Previously on Glucotrol at home. Restart this at lower than HD due to decreased renal function. May need to switch to long acting insulin 10/28/16 - Blood sugars remain high. Increase Glucotrol. Continue SSI - May need long acting insulin 10/29 - Blood sugars improving. Higher dose Glucotrol started this am - Monitor trend 10/30 - Now on Glucotrol 5 mg daily and SSRI (Glucotrol is not ideal and sugars remain around 200, but patient has been resistant to insulin at home - Will determine need for insulin as outpatient) (3) Acute [id number] elevation myocardial infarction Status: Acute Problem Text: JFW: troponin bumper to 0.45. Already on statin and bblocker, on warfarin. Will consult ronit TURNER d/w Dr Burris 10/27- Trop back to baseline. Medical intervention only per patient request. Cardiology recommendations read and appreciated. Coreg switched to Atenolol. Otherwise continue current regimen. 10/28 - Stable (4) Sacral decubitus ulcer, stage III Status: Chronic Problem Text: Get wound consult (5) History of pulmonary embolism Status: Chronic Response to Treatment: Stable Problem Text: On Chronic Coumadin Subtherapeutic on admission, but was not taking meds. 10/27 - Coumadin dose increased due to subtherapeutic level. INR trending toward goal - monitor and adjust dose accordingly 10/28 - Coumadin at goal. Cut back to usual HD of 2 mg daily 10/29 - Coumadin supratherapeutic. Hold COumadin today 10/30 - INR rising further. COntinue to hold Coumadin (6) BPH (benign prostatic hyperplasia) Status: Chronic Response to Treatment: Stable Problem Text: On Proscar (7) Hypothyroid Status: Chronic Response to Treatment: Stable Problem Specific Plan: Monitor Clinically Problem Text: Levothyroxine (8) Parkinson disease Status: Chronic Response to Treatment: Stable (9) Acute kidney injury Status: Resolved Problem Text: Continue IVF Has CKD - Baseline creatinine around 1.9 10/27/15 - Renal function about at baseline 10/28/15 - RF remains stable 10/29 - Creatinine at baseline. Na+ remains high. Restart slow rate IVF. Encourage po fluids Plan / VTE VTE Prophylaxis Ordered?: Yes (Coumadin) Plan Therapy: PT, OT Plan Text Attending note: Patient was last seen by Magalis Mart, but experience cardiac arrest prior to my assessment. I saw and evaluated the patient at the time of . I reviewed the patient's goals of care with the , who is present at the bedside. She confirmed that the patient did not want resuscitation. The patient was evaluated for neurologic response, including respirations, pulse, sternal rub, and corneal reflexes. Patient was noted to have none of these, and was pronounced . was given assistance with calling family. Care management was dispatched and help for finding home. Marilin Ordaz MD Subjective Review of Systems CC/HPI The patient is a 85-year-old male admitted with a reason for visit of Acute Kidney Injury, Uncontrolled Type 2 Dm. Events since last encounter c/o hurting all over. " I'm sick" Per nursing staff, hydrocodone causes confusion. Constitutional: Denies: Chills, Fever ENT: Denies: Head Aches Skin: Denies: Rash Pulmonary: Denies: Cough, Dyspnea Cardiovascular: Denies: Chest Pain, Palpitations Gastrointestinal: Denies: Abdominal Pain, Constipation, Diarrhea, Nausea, Vomiting Genitourinary: Denies: Dysuria, Frequency Musculoskeletal: Reports: Back Pain, Other Symptoms (gernalized weakness) Neurological: Reports: Weakness (general) Psych: Reports: Mood Normal Objective Physical Examination General Exam: Positive: Alert (Alert, Oriented Appears comfortable), Cooperative, No Acute Distress Neck Exam: Positive: Supple, Negative: JVD Chest Exam: Positive: Normal air movement, Negative: Clear to auscultation Heart Exam: Positive: Rate Normal, Negative: Murmurs Abdomen Exam: Positive: Normal bowel sounds, Soft, Negative: Tenderness Male Exam: Negative: Edema Extremity Exam: Negative: Edema Skin Exam: Positive: Nl turgor and temperature Vital Signs/I&O Vital Signs Date Time Temp Pulse Resp B/P Pulse Ox O2 Delivery O2 Flow Rate FiO2 10/30/16 22:00 98.9 89 20 140/80 94 Room Air 10/30/16 14:00 I&O- Last 24 Hours up to 6 AM 10/31/16 06:00 Intake Total 740 ml Output Total 835 ml Balance -95 ml Laboratory Data Labs 24H Laboratory Tests 2 10/30/16 11:29: Bedside Glucose (Misc Panel) 260H 10/30/16 16:50: Bedside Glucose (Misc Panel) 169H 10/30/16 20:45: Bedside Glucose (Misc Panel) 177H 10/31/16 05:43: Albumin 1.6L, Blood Urea Nitrogen 59H, Creatinine 1.79H, Sodium Level 148H, Potassium Level 4.0, Chloride Level 115H, Carbon Dioxide Level 24, Anion Gap 9, Calcium Level 8.2L, Glomerular Filtration Rate 38.7, Phosphorus Level 2.9, Prothromb Time International Ratio 4.96, Prothrombin Time 46.0H CBC/BMP Laboratory Tests 10/31/16 05:43 Anion Gap 9, Red Blood Count 3.83 L, Mean Corpuscular Volume 87.5, Mean Corpuscular Hemoglobin 27.6, Mean Corpuscular Hemoglobin Concent 31.5 L, Red Cell Distribution Width 15.8 H FSBS Laboratory Tests Test 10/30/16 11:29 10/30/16 16:50 10/30/16 20:45 Range/Units Bedside Glucose (Misc Panel) 260 169 177 83-110 MG/DL Microbiology Microbiology 10/25/16 Blood Culture - Final, Complete Enterococcus Faecalis 10/25/16 Blood Culture - Final, Complete Enterococcus Faecalis 10/27/16 MRSA Screen - Final, Complete 10/25/16 MRSA Screen - Final, Complete 10/25/16 Urine Culture - Final, Complete Serratia Marcescens Enterococcus Faecalis Yeast Like Organism Streptococcus Gordonii 10/25/16 Urine Culture - Final, Complete Enterococcus Faecalis Yeast Like Organism Jesica Mart Oct 31, 2016 07:23 MARILIN ORDAZ MD Nov 08, 2016 13:46
[2016-10-31] MEDS: PREGABALIN 50 MG CAP (LYRICA) PO SCH (09:42)
[2016-10-31] MEDS: ATORVASTATIN 20 MG TAB PO SCH (09:42)
[2016-10-31 09:43] VITALS: BP 146/63
[2016-10-31] MEDS: FINASTERIDE 5 MG TAB PO SCH (09:43)
[2016-10-31] MEDS: ATENOLOL 12.5MG PER 1/2 TABLET PO SCH (09:43)
[2016-10-31] MEDS: ASPIRIN 81 MG ENTERIC TAB PO SCH (09:43)
[2016-10-31] MEDS: glipiZIDE (GLUCOTROL) 5 MG TAB PO SCH (09:43)
[2016-10-31] MEDS: VITAMIN D 1,000 INTERNATIONAL UNITS TABLET PO SCH (09:43)
[2016-10-31] MEDS: HumaLOG INSULIN (NovoLOG) PER UNIT SC SCH ×2 (09:44→13:26)
[2016-10-31] MEDS: DORZOLAMIDE 2% OPHTH SOLN 10 ML BTL OU SCH (09:44)
[2016-10-31] MEDS: COMBIGAN OPHTH (PATIENT'S OWN MED) OU SCH (09:44)
[2016-10-31 10:22] VITALS: BP 146/63
--- NOTE | 2016-10-31 11:53 | REP ---
CT HEAD WITHOUT CONTRAST: HISTORY: Mental status change. Areas of decreased attentuation are present in the periventricular and subcortical white matter. This represents small vessel ischemic disease. There is no intraparenchymal hemorrhage mass or midline shift. The ventricular system and cortical sulci are dilated consistent with moderate volume loss. There is no extracerebral collection. The visualized sinuses are clear. IMPRESSION: 1. Small vessel ischemic disease. 2. Moderate volume loss. Signed by Michael Stovall MD 10/31/2016 12:09 P
[2016-10-31] MEDS ORDERED: LevoFLOXacin 500 MG TABLET PO ONE (13:30)
[2016-10-31 14:00] VITALS: BP 120/70
--- NOTE | 2016-10-31 20:27 | DS.PDOC ---
Discharge Summary General Date of Admission Oct 25, 2016 at 04:49 Date of Discharge Oct 31, 2016 at 14:12 Primary Care Physician: Umer Khan MD Attending Physician: MARILIN ALBRIGHT MD Specialist/Consultants Involve: Edmar Burris Discharge Summary PROCEDURES PERFORMED DURING STAY: None COMPLICATIONS/CHIEF COMPLAINT: Acute Kidney Injury, Uncontrolled Type 2 Dm ADMISSION DIAGNOSES: 1. Hyperosmolar hyperglycemic state 2. Acute kidney injury 3. 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 Hyperlipidemia 5. Hypertension 6. BPH 7. Hypothyroidism 8. Parkinson's DISCHARGE DIAGNOSES: 1. Patient 2. Urosepsis secondary to Enterococcus faecalis 3. Hyperosmolar nonketotic hyperglycemia 4. Acute non-ST segment elevation myocardial infarction 5. Stage II sacral decubitus ulcer 6. History of PE, on Coumadin 7. BPH 8. Hypothyroidism 9. Parkinson's HISTORY OF PRESENT ILLNESS: Nursing reported that the patient was unresponsive. Upon arrival to the bedside , the patient was found to have a fixed gaze, was not breathing, and had no palpable or audible heart tones. His corneal reflexes were absent. The pts was at the bedside and confirmed that he would not want heroic measures. He was pronounced at 1412. The cause of was listed as cardiac arrest, secondary to recent NSTEMI, secondary to longstanding CAD. Family was notified by the pts . HOSPITAL COURSE: Patient was admitted on 10/25/2016 for weakness and a fall at home. He was found to have hyperosmolar nonketotic hyperglycemic state and ANKUR. He was started on an insulin drip and admitted to the ICU, where he then developed an acute non-ST segment elevation HI. Cardiology was consulted, and due to the patient's condition did not recommend surgical intervention. He was medically optimized with aspirin, Coumadin, statin, and non-vasodilator beta sita. On 10/28/2016 the patient was noted to have sepsis, secondary to enterococcus faecalis. It is unclear at what point he was clinically diagnosed with this. Prior to , the patient had been clinically improving, but the patient was feeling unwell, and having hallucinations. The patient passed on 10/31/2016 at 1412, after likely cardiac arrest. No attempt at resuscitation was made, as the patient was DNR/DNI, and agreed with patient's previous wishes. DISCHARGE MEDICATIONS: Please see below. ALLERGIES: Please see below. PHYSICAL EXAMINATION ON DISCHARGE: VITAL SIGNS: Please see below. GENERAL: Lying in bed, fixed gaze, vela coloration HEENT: No corneal reflex NECK: No palpable carotid artery CARDIOVASCULAR EXAMINATION: No heart tones auscultated RESPIRATORY EXAMINATION: No chest rise, and no breath sounds heard DISCHARGE CONDITION: Patient , [place] [facility] [place]POSITION: TIME SPENT ON DISCHARGE: Greater than 30 minutes. Vital Signs/I&Os Vital Signs Date Time Temp Pulse Resp B/P Pulse Ox O2 Delivery O2 Flow Rate FiO2 10/31/16 14:00 96.7 75 18 120/70 90 Room Air 10/31/16 10:30 2.0 I&O- Last 24 Hours up to 6 AM 10/31/16 05:59 Intake Total 740 ml Output Total 835 ml Balance -95 ml Laboratory Data Labs 24H Laboratory Tests 2 10/30/16 20:45: Bedside Glucose (Misc Panel) 177H 10/31/16 05:43: Albumin 1.6L, Blood Urea Nitrogen 59H, Creatinine 1.79H, Sodium Level 148H, Potassium Level 4.0, Chloride Level 115H, Carbon Dioxide Level 24, Anion Gap 9, Calcium Level 8.2L, Glomerular Filtration Rate 38.7, Phosphorus Level 2.9, Prothromb Time International Ratio 4.96, Prothrombin Time 46.0H 10/31/16 11:43: Bedside Glucose (Misc Panel) 162H CBC/BMP Laboratory Tests 10/31/16 05:43 Anion Gap 9, Red Blood Count 3.83 L, Mean Corpuscular Volume 87.5, Mean Corpuscular Hemoglobin 27.6, Mean Corpuscular Hemoglobin Concent 31.5 L, Red Cell Distribution Width 15.8 H FSBS Laboratory Tests Test 10/30/16 20:45 10/31/16 11:43 Range/Units Bedside Glucose (Misc Panel) 177 162 83-110 MG/DL Microbiology Microbiology 10/25/16 Blood Culture - Final, Complete Enterococcus Faecalis 10/25/16 Blood Culture - Final, Complete Enterococcus Faecalis 10/27/16 MRSA Screen - Final, Complete 10/25/16 MRSA Screen - Final, Complete 10/25/16 Urine Culture - Final, Complete Serratia Marcescens Enterococcus Faecalis Yeast Like Organism Streptococcus Gordonii 10/25/16 Urine Culture - Final, Complete Enterococcus Faecalis Yeast Like Organism Medications Scheduled (Combigan 0.2-0.5 %) 1 Fany Fany 1 DROP OU BID Atorvastatin Calcium (Atorvastatin Calcium) 40 Mg Tab 40 MG PO DAILY Carvedilol (Coreg) 6.25 Mg Tab 6.25 MG PO BID Cholecalciferol (Vitamin D) 1,000 Unit Tab 1,000 UNIT PO DAILY Dorzolamide HCl (Trusopt) 2 % Fany 1 DROP OU BID Finasteride (Finasteride) 5 Mg Tab 5 MG PO DAILY Glipizide (Glipizide) 5 Mg Tab 5 MG PO DAILY Levothyroxine Sodium (Synthroid) 75 Mcg Tab 75 MCG PO DAILY Pregabalin (Lyrica) 50 Mg Cap 50 MG PO BID Warfarin Sod (Coumadin) 2 Mg Tab 2 MG PO 2XW MON,FRI Warfarin Sod (Warfarin Sodium) 1 Mg Tab 1 MG PO 5XW SUN,TU,WED,,SAT Scheduled PRN Acetaminophen/Hydrocodone (Hydrocodone/Acetaminophen 5-325 mg) 1 Tab Tab 1 TAB PO Q6H PRN PRN PAIN Allergies Coded Allergies: Menthol (Verified Allergy, Unknown, RASH, 01/17/13) Pioglitazone (Verified Allergy, Unknown, 09/02/15) Simvastatin (Verified Adverse Reaction, Severe, MYALGIAS, 01/17/13) Ezetimibe (Verified Adverse Reaction, Mild, GI UPSET, 01/17/13) Gemfibrozil (Verified Adverse Reaction, Mild, GI UPSET, 01/17/13) Metformin (Verified Adverse Reaction, Mild, GI UPSET, 01/17/13) Sulfa Drugs (Verified Adverse Reaction, Mild, UPSET STOMACH, 01/17/13) Sulfa Drugs Cross Reactors (Verified Adverse Reaction, Mild, UPSET STOMACH , 01/17/13) Sulfamethoxazole (Verified Adverse Reaction, Mild, UPSET STOMACH, 01/17/13) Trimethoprim (Verified Adverse Reaction, Mild, UPSET STOMACH, 01/17/13) Tramadol (Verified Adverse Reaction, Unknown, GI UPSET, 01/17/13) MARILIN ALBRIGHT MD Oct 31, 2016 20:27 MARILIN ALBRIGHT MD Oct 31, 2016 20:27
[2016-10-31] MEDS ORDERED: LEVEMIR (INSULIN DETEMIR) 1 UNITS/0.01ML SC SCH (21:00)
[2016-11-01] MEDS ORDERED: LevoFLOXacin 250 MG TABLET PO SCH (14:00)
== END 2016-10-31 14:12 | disposition expired | DRG 871 ==
LOC: M ED 01:45 → M ED INP 04:49 → M ICU 06:03 → M MSPAV 10-27 17:38
PROVIDERS: ADMIT Internal Medicine; ATTEND Family Medicine
DX: A41.9 Sepsis, unspecified organism (principal); I21.4 Non-ST elevation (NSTEMI) myocardial infarction; L89.153 Pressure ulcer of sacral region, stage 3; E11.00 Type 2 diabetes mellitus with hyperosmolarity without nonketotic hyperglycemic-hyperosmolar coma (NKHHC); N17.9 Acute kidney failure, unspecified; D68.59 Other primary thrombophilia; E87.0 Hyperosmolality and hypernatremia; N39.0 Urinary tract infection, site not specified; Z91.128 Patient's intentional underdosing of medication regimen for other reason; Z79.899 Other long term (current) drug therapy; Z86.718 Personal history of other venous thrombosis and embolism; Z86.711 Personal history of pulmonary embolism; E78.5 Hyperlipidemia, unspecified; G20 Parkinson's disease; E55.9 Vitamin D deficiency, unspecified; N18.3 Chronic kidney disease, stage 3 (moderate); I12.9 Hypertensive chronic kidney disease with stage 1 through stage 4 chronic kidney disease, or unspecified chronic kidney disease; E11.21 Type 2 diabetes mellitus with diabetic nephropathy; N40.0 Benign prostatic hyperplasia without lower urinary tract symptoms; K21.9 Gastro-esophageal reflux disease without esophagitis; E03.9 Hypothyroidism, unspecified; Z88.8 Allergy status to other drugs, medicaments and biological substances; I25.10 Atherosclerotic heart disease of native coronary artery without angina pectoris; E11.40 Type 2 diabetes mellitus with diabetic neuropathy, unspecified; Z91.19 Patient's noncompliance with other medical treatment and regimen